=== PATIENT | female | born 1970 | race African-American/Black ===

== ENCOUNTER → 2020-06-24 13:15 | Outpatient (BNVA) | payer BC, SELFPAY | PROVIDERS: PCP Internal Medicine; Visit Provider Hospitalist ==

== ENCOUNTER → 2021-03-27 13:32 | Outpatient (BNVA) | payer OTHER, SELFPAY | PROVIDERS: PCP Internal Medicine; Visit Provider Hospitalist | DX: J45.50 Severe persistent asthma, uncomplicated (principal); J30.9 Allergic rhinitis, unspecified; L20.84 Intrinsic (allergic) eczema | CPT/HCPCS: 99212 ==

== ENCOUNTER → 2022-02-20 15:39 | Outpatient (BNVA) | payer OTHER, SELFPAY | PROVIDERS: Visit Provider Hospitalist | DX: J45.50 Severe persistent asthma, uncomplicated (principal); J30.9 Allergic rhinitis, unspecified; L20.84 Intrinsic (allergic) eczema | CPT/HCPCS: 99212 ==

== ENCOUNTER 2023-02-26 15:26 | Outpatient (REF) | payer OTHER, SELFPAY ==
--- NOTE | 2023-02-26 16:28 | PFT_ITS ---
Forced vital capacity 125%, FEV1 114%, FEV1/FVC ratio is 73. [id number] 78% and MVV 98%. Post bronchodilator therapy, there is no significant change. Total lung capacity 100%. Residual volume 99%. Diffusion capacity 94%. CONCLUSION: Normal pulmonary function tests, and there is no evidence of obstructive or restrictive pulmonary disorder. MD ALL Vila/LESLIEL / [phone]
== END 2023-02-26 15:27 | disposition home or self-care (01) ==
LOC: HO.RESP 15:26
PROVIDERS: PCP Family Medicine; Visit Provider Hospitalist
DX: J45.50 Severe persistent asthma, uncomplicated (principal)
CPT/HCPCS: 94010; 94727; 94729

== ENCOUNTER → 2023-02-26 16:28 | Outpatient (BNV) | payer OTHER, SELFPAY | PROVIDERS: PCP Family Medicine; Visit Provider Internal Medicine | DX: J45.50 Severe persistent asthma, uncomplicated (principal) | CPT/HCPCS: 94060; 94727; 94729 ==

== ENCOUNTER 2023-04-26 13:53 | Outpatient (AMB) | payer OTHER, SELFPAY ==
[2023-04-26 14:01] VITALS: PULSE 72; O2SAT 100; BMI 33.8
--- NOTE | 2023-04-26 14:01 | MHC.OFFVIS ---
Intake Vital Signs 04/26/23 14:01 Height 5 ft 4 in Weight 197 lb BMI 33.8 Pulse 72 Pulse Source Pulse Oximeter Pulse Oximetry (%) 100 Oxygen Delivery Method Room Air Intake Visit Reasons: Asthma/PFT Follow Up Powerhouse Operator Required: No Allergies aspirin Allergy (Severe, Verified 04/26/23 14:02) Rash and Hives Sulfa (Sulfonamide Antibiotics) Allergy (Severe, Verified 04/26/23 14:02) Rash and Hives HPI HPI Comments History of Present Illness Details The patient is a 53 year-old woman with known severe persistent asthma. She continues to be a maximum respiratory therapy with Dulera and also Spiriva. She has been using her DuoNeb 3 to 4 times a day. I saw her back in November for the 1st time and at that time she has had multiple exacerbations requiring prednisone. Since I saw her back in November she has had 3 exacerbations requiring prednisone in 1 ER visit. They wanted to admit her because of her severe wheezing but the patient was reluctant to do so went home. She has been struggling now for the last few days. When she arrived to the office she had diffuse wheezing. Significant shortness of breath. She received 3 DuoNeb treatments in the office and also received 1 dose of IM Solu-Medrol 125 mg. Still have to all the therapy should continue have some wheezing. Apparently she was stable enough to go home. We did review her blood work at [facility]. She did have some eosinophilia noted on her CBC, but, it did clear based on the fact that she went on prednisone. Her IgE level was 100. There is RAST test positive for significant allergens. Positive for multi including alterneria. Also significant allergies to dust mites and environmental allergies including trees and significant for grasses and cats and dogs. Based on his significant wheezing will times a day that I have evaluated her she is not able to perform a spirometry. 03/17/2019 Today the patient is here for pulmonary follow-up visit. She is doing better. She is still on the prednisone taper. Recently she bought a house and she is going to the moving process. She did get approved for the Dupixent although, she is concerned about the Co pays. She continues her respiratory therapy. Well on the prednisone to breathe the better. 02/20/2022 the patient is here for pulmonary follow-up visit. Overall her symptoms have improved dramatically and Dupixent. Doing very well. She has been off prednisone since she started the medication. Has been using her Dulera as rx. Has required her AALIYAH a few times, but less than 1 time aweek. She does start feeling some symptoms of her asthma and also eczema just prior to her next dose. Therefore she needs to continue the therapy as her significant allergic asthma and a topic dermatitis her still present. She is tolerating the injections, but causing injection site pain. Denies any side effects of any reactions to the actual injection site or any systemic manifestations. Otherwise she is doing very well. Otherwise the patient is without any other complaints. 04/26/2023 the patient is here for a pulmonary follow-up visit. She continues to do extremely well on the Dupixent injections. Her asthma has been completely under control. She has not required any prednisone. She does have a respiratory medications which she uses. Has not required her rescue inhaler. Unfortunately she did develop an episode of GI bleed and was diagnosed with colitis. The details of that are not available since have any Boo Geraldo not sure right now she has diagnosis. Then subsequently after that [facility] Medical History (Updated 04/28/23 @ 22:12 by Rodríguez Cabezas MD) Renal insufficiency Eczema Chronic allergic rhinitis Asthma Social History (Updated 03/27/21 @ 13:41 by JEN Gordon) Patient Tobacco Use Status: Never used Tobacco Review of Systems Const Denies night sweats ENT Denies change in voice, Denies lip swelling, Denies mouth pain, Reports nasal congestion, Reports nasal discharge and Denies tongue swelling Card Denies chest pain Resp Reports cough and Denies wheezing GI Reports as per HPI and Reports abdominal pain Reports as per HPI Musc Denies no additional complaints Skin/Breast Denies pruritus and Denies erythema Neuro Denies Neuro-related abnormal movements Psych Denies no additional complaints Eduardo/Lymph Denies easy bleeding and Denies lymphadenopathy Aller/Immun Denies lip swelling, Denies tongue swelling and Denies wheezing Physical Exam Vital Signs: Last Vital Signs Pulse 72 04/26/23 14:01 Pulse Ox 100 04/26/23 14:01 Oxygen Delivery Method Room Air 04/26/23 14:01 BMI result Body Mass Index 33.8 Const General: alert Neck Neck: Yes normal visual inspection, Yes full ROM and Yes no lymphadenopathy Chest Chest palpation & inspection: normal inspection of the chest Resp Auscultation: clear to auscultation bilaterally, no rhonchi and no wheezes Cardio Rate: regular rate Rhythm: regular rhythm Heart sounds: S1 normal heart sound present and S2 normal heart sound present GI Palpation (GI): Soft to palpation and nontender Auscultation: normal bowel sounds General: Yes no CVA tenderness Back/Spine/Pelvis Back: no CVA tenderness Skin General skin exam: rashes and/or lesions noted Results Reviewed Results Reviewed: RUN: 04/28/231 PAGE 1 [facility] [address] [place] [id number] [employer]iss Press Operator: Baltazar Doyle M.D. Specimen Inquiry Name: Terese Randall Age/Sex: 53/F : 1970 Unit#: [id number] Attend Dr: Rodríguez Cabezas MD Re04/26/23 Status: DEP REF Location: [facility] Disch: SPEC : [id number] KENDAL: 04/26/23 STATUS: COMP REQ : [id number] RECD: 04/26/[address]: Rodríguez Cabezas MD COMP: 04/26/23 ENTERED: 04/26/[address]: Jing Nair MD ORDERED: Liver Panel, BMP Test Result Flag Reference Site Sodium 138 135-145 mmol/L Potassium 4.2 3.3-5.1 mmol/L CL 103 96-108 mmol/L CO2 28 22-29 mmol/L Gap 11 L 12-20 BUN 17 H 9-16 mg/dL Creat 1.02 0.5-1.4 mg/dL EGFR 57 NOTE: For -[place] individuals, multiply the result by 1.210. Chronic Kidney Disease: Estimated GFR < 60 mL/min/1.73m2 Severe Kidney Disease: Estimated GFR < 15 mL/min/1.73m2 Glucose, Random 98 60-115 mg/dL CA 9.6 8.4-10.2 mg/dL Total Bili 0.3 0.0-1.0 mg/dL Direct Bili 0.1 0.0-0.5 mg/dL AST (GOT) 17 5-31 U/L ALT (GPT) 14 0-31 U/L Protein, Total 7.8 6.5-8.0 g/dL Alb 4.1 3.5-5.0 g/dL Alk Phos 70 39-117 U/L END OF REPORT Assessment & Plan Assessment & Plan (1) Asthma: Code(s): J45.909 - Unspecified asthma, uncomplicated Qualifiers: Asthma complication type: uncomplicated Asthma persistence: persistent Asthma severity: severe Qualified Code(s): J45.50 - Severe persistent asthma, uncomplicated (2) Chronic allergic rhinitis: Code(s): J30.9 - Allergic rhinitis, unspecified (3) Eczema: Code(s): L30.9 - Dermatitis, unspecified Qualifiers: Eczema type: intrinsic Qualified Code(s): L20.84 - Intrinsic (allergic) eczema (4) Renal insufficiency: Comment: Doubt that is the Dupixent. Likely related to NSAID use. One case report of IGA nephropathy induced by Dupixent, however. She will follow up with nephrology Code(s): N28.9 - Disorder of kidney and ureter, unspecified Plan Continue Dulera 2 puff BID AALIYAH as needed continue Dupixent every 2 weeks Allergy therapy Bloodwork F/U 4-6 months Orders: Orders Basic Metabolic Panel 04/26/23 J45.909 - Unspecified asthma, uncomplicated, N28.9 - Disorder of kidney and ureter, unspecified Liver Panel 04/26/23 J45.909 - Unspecified asthma, uncomplicated, N28.9 - Disorder of kidney and ureter, unspecified Immunoglobulins,IgG IgA IgM 04/26/23 J45.909 - Unspecified asthma, uncomplicated, N28.9 - Disorder of kidney and ureter, unspecified Cyclic Citrullinated Peptide 04/26/23 J45.909 - Unspecified asthma, uncomplicated, N28.9 - Disorder of kidney and ureter, unspecified Complete Blood Count Auto Diff 04/26/23 J45.909 - Unspecified asthma, uncomplicated, N28.9 - Disorder of kidney and ureter, unspecified Erythrocyte Sedimentation Rate 04/26/23 J45.909 - Unspecified asthma, uncomplicated, N28.9 - Disorder of kidney and ureter, unspecified MELBA Reflex Titer and Pattern 04/26/23 J45.909 - Unspecified asthma, uncomplicated, N28.9 - Disorder of kidney and ureter, unspecified Coding Level of Care Code Est Pt Level 4 (76538) Diagnoses Severe persistent asthma without complication J45.50 Asthma complication type: uncomplicated Asthma persistence: persistent Asthma severity: severe Chronic allergic rhinitis J30.9 Intrinsic eczema L20.84 Eczema type: intrinsic Renal insufficiency N28.9 Time Spent (min) 17
== END 2023-04-26 14:15 | disposition home or self-care (01) ==
PROVIDERS: PCP Family Medicine; Visit Provider Hospitalist
DX: J45.50 Severe persistent asthma, uncomplicated (principal); J30.9 Allergic rhinitis, unspecified; L20.84 Intrinsic (allergic) eczema; N28.9 Disorder of kidney and ureter, unspecified
CPT/HCPCS: 99214

== ENCOUNTER 2023-04-26 13:53 | Outpatient (REF) | payer OTHER, SELFPAY ==
[2023-04-30 14:38] LABS: Anti Nuclear Antibody Screen NEGATIVE (NEGATIVE)
[2023-04-30 17:13] LABS: IgA 451 mg/dL (47-310); IgG 1312 mg/dL (600-1640); IgM 100 mg/dL (50-300)
[2023-05-04 13:12] LABS: Cyclic Citrullinated Peptide <16 UNITS
== END 2023-04-26 13:54 | disposition home or self-care (01) ==
LOC: HO.LAB 13:53
PROVIDERS: PCP Family Medicine; Visit Provider Hospitalist
DX: J45.50 Severe persistent asthma, uncomplicated (principal); J30.9 Allergic rhinitis, unspecified; L20.84 Intrinsic (allergic) eczema; N28.9 Disorder of kidney and ureter, unspecified
CPT/HCPCS: 36415; 80048; 80076; 82784; 85007; 85027; 85652; 86038; 86200; 99212

== ENCOUNTER 2023-09-26 14:00 | Outpatient (AMB) | payer OTHER, SELFPAY ==
[2023-09-26 14:05] VITALS: PULSE 71; O2SAT 97; BMI 34.0
--- NOTE | 2023-09-26 14:05 | MHC.OFFVIS ---
Vital Signs 09/26/23 14:05 Height 5 ft 4 in Weight 198 lb BMI 34.0 Pulse 71 Pulse Source Pulse Oximeter Pulse Oximetry (%) 97 Oxygen Delivery Method Room Air Intake Visit Reasons: Asthma Size Cutter Required: No Allergies aspirin Allergy (Severe, Verified 09/26/23 14:07) Rash and Hives Sulfa (Sulfonamide Antibiotics) Allergy (Severe, Verified 09/26/23 14:07) Rash and Hives HPI Comments Details: The patient is a 53 year-old woman with known severe persistent asthma. She continues to be a maximum respiratory therapy with Dulera and also Spiriva. She has been using her DuoNeb 3 to 4 times a day. I saw her back in November for the 1st time and at that time she has had multiple exacerbations requiring prednisone. Since I saw her back in November she has had 3 exacerbations requiring prednisone in 1 ER visit. They wanted to admit her because of her severe wheezing but the patient was reluctant to do so went home. She has been struggling now for the last few days. When she arrived to the office she had diffuse wheezing. Significant shortness of breath. She received 3 DuoNeb treatments in the office and also received 1 dose of IM Solu-Medrol 125 mg. Still have to all the therapy should continue have some wheezing. Apparently she was stable enough to go home. We did review her blood work at [facility]. She did have some eosinophilia noted on her CBC, but, it did clear based on the fact that she went on prednisone. Her IgE level was 100. There is RAST test positive for significant allergens. Positive for multi including alterneria. Also significant allergies to dust mites and environmental allergies including trees and significant for grasses and cats and dogs. Based on his significant wheezing will times a day that I have evaluated her she is not able to perform a spirometry. 03/17/2019 Today the patient is here for pulmonary follow-up visit. She is doing better. She is still on the prednisone taper. Recently she bought a house and she is going to the moving process. She did get approved for the Dupixent although, she is concerned about the Co pays. She continues her respiratory therapy. Well on the prednisone to breathe the better. 02/20/2022 the patient is here for pulmonary follow-up visit. Overall her symptoms have improved dramatically and Dupixent. Doing very well. She has been off prednisone since she started the medication. Has been using her Dulera as rx. Has required her AALIYAH a few times, but less than 1 time aweek. She does start feeling some symptoms of her asthma and also eczema just prior to her next dose. Therefore she needs to continue the therapy as her significant allergic asthma and a topic dermatitis her still present. She is tolerating the injections, but causing injection site pain. Denies any side effects of any reactions to the actual injection site or any systemic manifestations. Otherwise she is doing very well. Otherwise the patient is without any other complaints. 04/26/2023 the patient is here for a pulmonary follow-up visit. She continues to do extremely well on the Dupixent injections. Her asthma has been completely under control. She has not required any prednisone. She does have a respiratory medications which she uses. Has not required her rescue inhaler. Unfortunately she did develop an episode of GI bleed and was diagnosed with colitis. The details of that are not available since have any Ema Chow not sure right now she has diagnosis. Then subsequently after that 09/26/2023 the patient is here for a pulmonary follow-up visit. She is doing very well on the Dupixent. The patient has respiratory symptoms have been decreased. She has not required any prednisone. Although she still concerned about his kidneys. She will be following up with Nephrology. She has not had any recent blood work at least in the last few months. The last blood work we have in the system was back from April and her EGFR was 57. I did reassure her that was not too bad but I am not sure what it is now. She was told by primary care doctor that she had ?stage III disease?. Therefore, based on the fact that we have that information and I am concerned about her kidneys will go ahead and start Dupixent because of the potential. I doubt the Dupixent has anything to do with it but there is 1 case report with IgA nephropathy. Therefore she will follow-up with Nephrology as well as possible. If she is able to rule out the possibility of IgA nephropathy and if her kidney function is better then she can consider going back on Dupixent. We will in the meantime will see how she does without it. She does have her Dulera and her allergy medicine. Another option is the if her symptoms worsen for asthma we can always consider a different biologic if she is requiring prednisone again. Will follow-up in early fall. If she has any worsening symptoms or any concerns she will call for an earlier assessment. [facility] Medical History (Updated 04/28/23 @ 22:12 by Rodríguez Cabezas MD) Renal insufficiency Eczema Chronic allergic rhinitis Asthma Social History (Updated 03/27/21 @ 13:41 by JEN Gordon) Patient Tobacco Use Status: Never used Tobacco Review of Systems Const Denies night sweats ENT Denies change in voice, Denies lip swelling, Denies mouth pain, Reports nasal congestion, Reports nasal discharge and Denies tongue swelling Card Denies chest pain Resp Denies cough and Denies wheezing GI Reports as per HPI and Reports abdominal pain Reports as per HPI Musc Denies no additional complaints Skin/Breast Denies pruritus and Denies erythema Neuro Denies Neuro-related abnormal movements Psych Denies no additional complaints Eduardo/Lymph Denies easy bleeding and Denies lymphadenopathy Aller/Immun Denies lip swelling, Denies tongue swelling and Denies wheezing Physical Exam Vital Signs: Last Vital Signs Pulse 71 09/26/23 14:05 Pulse Ox 97 09/26/23 14:05 Oxygen Delivery Method Room Air 09/26/23 14:05 BMI result Body Mass Index 34.0 Const General: alert Neck Neck: Yes normal visual inspection, Yes full ROM and Yes no lymphadenopathy Chest Chest palpation & inspection: normal inspection of the chest Resp Auscultation: clear to auscultation bilaterally, no rhonchi and no wheezes Cardio Rate: regular rate Rhythm: regular rhythm Heart sounds: S1 normal heart sound present and S2 normal heart sound present GI Palpation (GI): Soft to palpation and nontender Auscultation: normal bowel sounds General: Yes no CVA tenderness Back/Spine/Pelvis Back: no CVA tenderness Skin General skin exam: rashes and/or lesions noted Assessment & Plan Assessment & Plan (1) Asthma: Code(s): J45.909 - Unspecified asthma, uncomplicated Category: Medical Qualifiers: Asthma complication type: uncomplicated Asthma persistence: persistent Asthma severity: severe Qualified Code(s): J45.50 - Severe persistent asthma, uncomplicated (2) Chronic allergic rhinitis: Code(s): J30.9 - Allergic rhinitis, unspecified Category: Medical (3) Eczema: Code(s): L30.9 - Dermatitis, unspecified Category: Medical Qualifiers: Eczema type: intrinsic Qualified Code(s): L20.84 - Intrinsic (allergic) eczema (4) Renal insufficiency: Comment: Doubt that is the Dupixent. Likely related to NSAID use. One case report of IGA nephropathy induced by Dupixent, however. She will follow up with nephrology Code(s): N28.9 - Disorder of kidney and ureter, unspecified Category: Medical Plan Continue Dulera 2 puff BID AALIYAH as needed will hold Dupixent every 2 weeks for now. She will follow up with her financial coordinator and monitor her asthma symptoms F/U 4 months Medications: Changed From cetirizine 10 mg PO DAILY To cetirizine 10 mg PO DAILY 90 tabs 3RF 90 days Refilled mometasone-formoterol 100-5 mcg/actuation 2 puffs inhalation BID 13 grams 11RF 30 days Coding Level of Care Code Est Pt Level 4 (16745) Diagnoses Severe persistent asthma without complication J45.50 Asthma complication type: uncomplicated Asthma persistence: persistent Asthma severity: severe Chronic allergic rhinitis J30.9 Intrinsic eczema L20.84 Eczema type: intrinsic Renal insufficiency N28.9 Time Spent (min) 17
== END 2023-09-26 14:22 | disposition home or self-care (01) ==
PROVIDERS: PCP Family Medicine; Visit Provider Hospitalist
DX: J45.50 Severe persistent asthma, uncomplicated (principal); J30.9 Allergic rhinitis, unspecified; L20.84 Intrinsic (allergic) eczema; N28.9 Disorder of kidney and ureter, unspecified
CPT/HCPCS: 99214

== ENCOUNTER → 2023-09-26 14:00 | Outpatient (BNVA) | payer OTHER, SELFPAY | PROVIDERS: PCP Family Medicine; Visit Provider Hospitalist | DX: J45.50 Severe persistent asthma, uncomplicated (principal); J30.9 Allergic rhinitis, unspecified; L20.84 Intrinsic (allergic) eczema; N28.9 Disorder of kidney and ureter, unspecified | CPT/HCPCS: 99212 ==

== ENCOUNTER 2024-01-27 15:22 | Outpatient (AMB) | payer BC, SELFPAY ==
[2024-01-27 15:25] VITALS: BP 128/70; PULSE 66; O2SAT 100; BMI 33.7
--- NOTE | 2024-01-27 15:25 | A.OFFVIS_ITS ---
Vital Signs 01/27/24 15:25 Height 5 ft 4 in Weight 196 lb 6.91 oz BMI 33.7 BP 128/70 Blood Pressure Location Lt brachial Position Sitting Pulse 66 Pulse Source Pulse Oximeter Pulse Oximetry (%) 100 Oxygen Delivery Method Room Air Intake Visit Reasons: Asthma Gallery Or Museum Curator Required: No Allergies aspirin Allergy (Severe, Verified 01/27/24 15:29) Rash and Hives Sulfa (Sulfonamide Antibiotics) Allergy (Severe, Verified 01/27/24 15:29) Rash and Hives HPI Comments Details: The patient is a 53 year-old woman with known severe persistent asthma. She continues to be a maximum respiratory therapy with Dulera and also Spiriva. She has been using her DuoNeb 3 to 4 times a day. I saw her back in November for the 1st time and at that time she has had multiple exacerbations requiring prednisone. Since I saw her back in November she has had 3 exacerbations requiring prednisone in 1 ER visit. They wanted to admit her because of her severe wheezing but the patient was reluctant to do so went home. She has been struggling now for the last few days. When she arrived to the office she had diffuse wheezing. Significant shortness of breath. She received 3 DuoNeb treatments in the office and also received 1 dose of IM Solu-Medrol 125 mg. Still have to all the therapy should continue have some wheezing. Apparently she was stable enough to go home. We did review her blood work at [facility]. She did have some eosinophilia noted on her CBC, but, it did clear based on the fact that she went on prednisone. Her IgE level was 100. There is RAST test positive for significant allergens. Positive for multi including alterneria. Also significant allergies to dust mites and environmental allergies including trees and significant for grasses and cats and dogs. Based on his significant wheezing will times a day that I have evaluated her she is not able to perform a spirometry. 03/17/2019 Today the patient is here for pulmonary follow-up visit. She is doing better. She is still on the prednisone taper. Recently she bought a house and she is going to the moving process. She did get approved for the Dupixent although, she is concerned about the Co pays. She continues her respiratory therapy. Well on the prednisone to breathe the better. 02/20/2022 the patient is here for pulmonary follow-up visit. Overall her symptoms have improved dramatically and Dupixent. Doing very well. She has been off prednisone since she started the medication. Has been using her Dulera as rx. Has required her AALIYAH a few times, but less than 1 time aweek. She does start feeling some symptoms of her asthma and also eczema just prior to her next dose. Therefore she needs to continue the therapy as her significant allergic asthma and a topic dermatitis her still present. She is tolerating the injections, but causing injection site pain. Denies any side effects of any reactions to the actual injection site or any systemic manifestations. Otherwise she is doing very well. Otherwise the patient is without any other complaints. 04/26/2023 the patient is here for a pulmonary follow-up visit. She continues to do extremely well on the Dupixent injections. Her asthma has been completely under control. She has not required any prednisone. She does have a respiratory medications which she uses. Has not required her rescue inhaler. Unfortunately she did develop an episode of GI bleed and was diagnosed with colitis. The details of that are not available since have any Ema Chow not sure right now she has diagnosis. Then subsequently after that 09/26/2023 the patient is here for a pulmonary follow-up visit. She is doing very well on the Dupixent. The patient has respiratory symptoms have been decreased. She has not required any prednisone. Although she still concerned about his kidneys. She will be following up with Nephrology. She has not had any recent blood work at least in the last few months. The last blood work we have in the system was back from April and her EGFR was 57. I did reassure her that was not too bad but I am not sure what it is now. She was told by primary care doctor that she had ?stage III disease?. Therefore, based on the fact that we have that information and I am concerned about her kidneys will go ahead and start Dupixent because of the potential. I doubt the Dupixent has anything to do with it but there is 1 case report with IgA nephropathy. Therefore she will follow-up with Nephrology as well as possible. If she is able to rule out the possibility of IgA nephropathy and if her kidney function is better then she can consider going back on Dupixent. We will in the meantime will see how she does without it. She does have her Dulera and her allergy medicine. Another option is the if her symptoms worsen for asthma we can always consider a different biologic if she is requiring prednisone again. Will follow-up in early fall. If she has any worsening symptoms or any concerns she will call for an earlier assessment. 01/27/2024 the patient is here for a pulmonary follow-up visit. Since we last spoke the patient did require a course of prednisone because of worsening respiratory symptoms and now she is off the prednisone although she feels like her breathing is not well for her. She has been using her inhalers as prescribed. She does have severe persistent asthma. She did extremely well Dupixent where her symptoms improved significantly. although she did ended up with the IgA nephropathy. And then came up the question of 50 Dupixent has anything to do with that. There were some case reports that did suggest some connection. Therefore she has been off the Dupixent since then. Now that her symptoms are worsening the patient will benefit from going back on the biologic therapy. Although since there is any potential risk of kidney disease is best to avoid Dupixent at this time. We did talk about different alternatives including Fasenra in Xolair. Her eosinophils continue be elevated suggesting an L5 inhibitor will be effective. Will have to wait for the IgE to get a sense of other alternatives. In the meantime she is going to continue with the current respiratory therapy. She is going to undergo blood work today to see if she will benefit more from a I 0 5 inhibitor versus Xolair. [facility] Medical History (Updated 04/28/23 @ 22:12 by Rodríguez Cabezas MD) Renal insufficiency Eczema Chronic allergic rhinitis Asthma Social History (Updated 03/27/21 @ 13:41 by JEN Gordon) Patient Tobacco Use Status: Never used Tobacco Review of Systems Const Denies night sweats ENT Denies change in voice, Denies lip swelling, Denies mouth pain, Reports nasal congestion, Reports nasal discharge and Denies tongue swelling Card Denies chest pain Resp Denies cough and Denies wheezing GI Reports as per HPI and Reports abdominal pain Musc Denies no additional complaints Skin/Breast Denies pruritus and Denies erythema Neuro Denies Neuro-related abnormal movements Psych Denies no additional complaints Eduardo/Lymph Denies easy bleeding and Denies lymphadenopathy Aller/Immun Denies lip swelling, Denies tongue swelling and Denies wheezing Physical Exam Vital Signs: Last Vital Signs Pulse 66 01/27/24 15:25 BP 128/70 01/27/24 15:25 Pulse Ox 100 01/27/24 15:25 Oxygen Delivery Method Room Air 01/27/24 15:25 BMI result Body Mass Index 33.7 Const General: alert Neck Neck: Yes normal visual inspection, Yes full ROM and Yes no lymphadenopathy Chest Chest palpation & inspection: normal inspection of the chest Resp Effort & Inspection: prolonged expiratory phase Auscultation: clear to auscultation bilaterally, no rhonchi and no wheezes Cardio Rate: regular rate Rhythm: regular rhythm Heart sounds: S1 normal heart sound present and S2 normal heart sound present GI Palpation (GI): Soft to palpation and nontender Auscultation: normal bowel sounds General: Yes no CVA tenderness Back/Spine/Pelvis Back: no CVA tenderness Skin General skin exam: rashes and/or lesions noted Assessment & Plan Assessment & Plan (1) Asthma: Code(s): J45.909 - Unspecified asthma, uncomplicated Category: Medical Qualifiers: Asthma complication type: uncomplicated Asthma persistence: persistent Asthma severity: severe Qualified Code(s): J45.50 - Severe persistent asthma, uncomplicated (2) Chronic allergic rhinitis: Code(s): J30.9 - Allergic rhinitis, unspecified Category: Medical (3) Eczema: Code(s): L30.9 - Dermatitis, unspecified Category: Medical Qualifiers: Eczema type: intrinsic Qualified Code(s): L20.84 - Intrinsic (allergic) eczema (4) Renal insufficiency: Comment: Doubt that is the Dupixent. Likely related to NSAID use. One case report of IGA nephropathy induced by Dupixent, however. She will follow up with nephrology Code(s): N28.9 - Disorder of kidney and ureter, unspecified Category: Medical Plan Continue Dulera 2 puff BID AALIYAH as needed stop Dupixent Request bloodwork start Fasenra if Eos are elevated. Also would consider Xolair if Eos are normal F/U 4 months Orders: Orders Immunoglobulin E Today J45.50 - Severe persistent asthma, uncomplicated Erythrocyte Sedimentation Rate Today J45.50 - Severe persistent asthma, uncomplicated Complete Blood Count Auto Diff Today J45.50 - Severe persistent asthma, uncomplicated Coding Level of Care Code Est Pt Level 4 (96747) Diagnoses Severe persistent asthma without complication J45.50 Asthma complication type: uncomplicated Asthma persistence: persistent Asthma severity: severe Chronic allergic rhinitis J30.9 Intrinsic eczema L20.84 Eczema type: intrinsic Renal insufficiency N28.9 Time Spent (min) 17
== END 2024-01-27 15:48 | disposition home or self-care (01) ==
PROVIDERS: PCP Family Medicine; Visit Provider Hospitalist
DX: J45.50 Severe persistent asthma, uncomplicated (principal); J30.9 Allergic rhinitis, unspecified; L20.84 Intrinsic (allergic) eczema; N28.9 Disorder of kidney and ureter, unspecified
CPT/HCPCS: 99214

== ENCOUNTER 2024-01-27 15:22 | Outpatient (REF) | payer BC, SELFPAY ==
[2024-01-27 17:01] LABS: Hematocrit 38.4 % (37.0-47.0); Hemoglobin 12.4 g/dl (12.0-16.0); Imm Gran Abs Auto 0.02 X10*3/uL (0.00-0.03); Imm Gran Pct Auto 0.2 % (0.0-0.4); MANUAL DIFF FLAG SCAN; Mean Corpuscular HGB Conc 32.3 g/dl (31.0-35.0); Mean Corpuscular Hemoglobin 28.1 pg (27.0-33.0); Mean Platelet Volume 13.3 fL (9.4-12.3); Red Cell Distribution Width 14.6 % (11.0-16.0); SCAN SMEAR FLAG 1
[2024-01-27 17:04] LABS: Basophils Absolute Auto 0.1 X10*3/uL (0.0-0.2); Basophils Percent Auto 0.9 % (0-2); Eosinophils Absolute Auto 0.4 X10*3/uL (0.0-0.4); Eosinophils Percent Auto 4.4 % (0-4); Lymphocytes Absolute Auto 3.2 X10*3/uL (1.2-4.9); Lymphocytes Percent Auto 34.6 % (20-40); Mean Corpuscular Volume 86.9 fL (80.0-98.0); Monocytes Absolute Auto 0.8 X10*3/uL (0.1-1.2); Monocytes Percent Auto 8.3 % (2-11); Neutrophils Absolute Auto 4.7 x10*3/uL (2.0-8.3); Neutrophils Percent Auto 51.6 % (45-73); Platelet Count 236 X10*3/uL (160-400); Red Blood Count 4.42 X10*6/uL (4.20-5.50); White Blood Count 9.2 X10*3/uL (4.8-10.8)
[2024-01-27 17:17] LABS: PLT ABN DIST 1
[2024-01-27 17:29] LABS: SLIDE REVIEW VERIFIED
[2024-01-27 17:43] LABS: Erythrocyte Sedimentation Rate 24 MM/HR (0-20)
[2024-01-30 03:24] LABS: Immunoglobulin E 9 kU/L (<OR=114)
== END 2024-01-27 15:23 | disposition home or self-care (01) ==
LOC: HO.LAB 15:22
PROVIDERS: PCP Family Medicine; Visit Provider Hospitalist
DX: J45.909 Unspecified asthma, uncomplicated (principal); N28.9 Disorder of kidney and ureter, unspecified; J45.50 Severe persistent asthma, uncomplicated
CPT/HCPCS: 36415; 82785; 85025; 85652

== ENCOUNTER 2024-06-15 15:33 | Outpatient (AMB) | payer BC, SELFPAY ==
--- NOTE | 2024-06-15 15:35 | A.OFFVIS_ITS ---
Vital Signs 06/15/24 15:36 Height 5 ft 4 in Weight 220 lb 7.396 oz BMI 37.8 BP 138/74 Blood Pressure Location Rt brachial Position Sitting Pulse 77 Pulse Source Pulse Oximeter Pulse Oximetry (%) 98 Oxygen Delivery Method Room Air Intake Visit Reasons: Asthma Allergies aspirin Allergy (Severe, Verified 06/15/24 15:40) Rash and Hives Sulfa (Sulfonamide Antibiotics) Allergy (Severe, Verified 06/15/24 15:40) Rash and Hives HPI Comments Details: The patient is a 54 year-old woman with known severe persistent asthma. She continues to be a maximum respiratory therapy with Dulera and also Spiriva. She has been using her DuoNeb 3 to 4 times a day. I saw her back in November for the 1st time and at that time she has had multiple exacerbations requiring prednisone. Since I saw her back in November she has had 3 exacerbations requiring prednisone in 1 ER visit. They wanted to admit her because of her severe wheezing but the patient was reluctant to do so went home. She has been struggling now for the last few days. When she arrived to the office she had diffuse wheezing. Significant shortness of breath. She received 3 DuoNeb treatments in the office and also received 1 dose of IM Solu-Medrol 125 mg. Still have to all the therapy should continue have some wheezing. Apparently she was stable enough to go home. We did review her blood work at [facility]. She did have some eosinophilia noted on her CBC, but, it did clear based on the fact that she went on prednisone. Her IgE level was 100. There is RAST test positive for significant allergens. Positive for multi including alterneria. Also significant allergies to dust mites and environmental allergies including trees and significant for grasses and cats and dogs. Based on his significant wheezing will times a day that I have evaluated her she is not able to perform a spirometry. 03/17/2019 Today the patient is here for pulmonary follow-up visit. She is doing better. She is still on the prednisone taper. Recently she bought a house and she is going to the moving process. She did get approved for the Dupixent although, she is concerned about the Co pays. She continues her respiratory therapy. Well on the prednisone to breathe the better. 02/20/2022 the patient is here for pulmonary follow-up visit. Overall her symptoms have improved dramatically and Dupixent. Doing very well. She has been off prednisone since she started the medication. Has been using her Dulera as rx. Has required her AALIYAH a few times, but less than 1 time aweek. She does start feeling some symptoms of her asthma and also eczema just prior to her next dose. Therefore she needs to continue the therapy as her significant allergic asthma and a topic dermatitis her still present. She is tolerating the injections, but causing injection site pain. Denies any side effects of any reactions to the actual injection site or any systemic manifestations. Otherwise she is doing very well. Otherwise the patient is without any other complaints. 04/26/2023 the patient is here for a pulmonary follow-up visit. She continues to do extremely well on the Dupixent injections. Her asthma has been completely under control. She has not required any prednisone. She does have a respiratory medications which she uses. Has not required her rescue inhaler. Unfortunately she did develop an episode of GI bleed and was diagnosed with colitis. The details of that are not available since have any Ema Chow not sure right now she has diagnosis. Then subsequently after that 09/26/2023 the patient is here for a pulmonary follow-up visit. She is doing very well on the Dupixent. The patient has respiratory symptoms have been decreased. She has not required any prednisone. Although she still concerned about his kidneys. She will be following up with Nephrology. She has not had any recent blood work at least in the last few months. The last blood work we have in the system was back from April and her EGFR was 57. I did reassure her that was not too bad but I am not sure what it is now. She was told by primary care doctor that she had ?stage III disease?. Therefore, based on the fact that we have that information and I am concerned about her kidneys will go ahead and start Dupixent because of the potential. I doubt the Dupixent has anything to do with it but there is 1 case report with IgA nephropathy. Therefore she will follow-up with Nephrology as well as possible. If she is able to rule out the possibility of IgA nephropathy and if her kidney function is better then she can consider going back on Dupixent. We will in the meantime will see how she does without it. She does have her Dulera and her allergy me dicine. Another option is the if her symptoms worsen for asthma we can always consider a different biologic if she is requiring prednisone again. Will follow-up in early fall. If she has any worsening symptoms or any concerns she will call for an earlier assessment. 01/27/2024 the patient is here for a pulmonary follow-up visit. Since we last spoke the patient did require a course of prednisone because of worsening respiratory symptoms and now she is off the prednisone although she feels like her breathing is not well for her. She has been using her inhalers as prescribed. She does have severe persistent asthma. She did extremely well Dupixent where her symptoms improved significantly. although she did ended up with the IgA nephropathy. And then came up the question of 50 Dupixent has anything to do with that. There were some case reports that did suggest some connection. Therefore she has been off the Dupixent since then. Now that her symptoms are worsening the patient will benefit from going back on the biologic therapy. Although since there is any potential risk of kidney disease is best to avoid Dupixent at this time. We did talk about different alternatives i ncluding Fasenra in Xolair. Her eosinophils continue be elevated suggesting an L5 inhibitor will be effective. Will have to wait for the IgE to get a sense of other alternatives. In the meantime she is going to continue with the current respiratory therapy. She is going to undergo blood work today to see if she will benefit more from a I 0 5 inhibitor versus Xolair. 06/15/2024 the patient is here for a pulmonary follow-up visit. Apparently she developed flu-like symptoms about 3 weeks ago and she has finally recovering a little bit although she still having productive cough with yellow phlegm. Likely postviral bacterial infection. Will go ahead and treat that with doxycycline. In addition to that she has switched over to the Fasenra and she has found that that is very effective for her. It has been very helpful for her asthma. Although she has been noticing some pleuritic type of eczema some findings on her palms which is very rare for her and she feels is related to the medicine. Although is really helping her asthma so therefore will try to continue it for now. I will prescribe her Eucrisa that she can continue with her steroid ointment that she is using to see if this provides her relief and will hopefully see if her symptoms subside some when she started using the injections every 8 weeks. In addition to that she is having significant lower extremity edema. She has had issues with kidneys although apparently has been stable. Will go have her get blood work to make sure her kidneys are okay and if they are will give her a course of Lasix for 3 days to improve her volume status. She knows she needs to avoid salt because she is retaining it too much. Although she will continue with respiratory therapy. If she has any issues she will call otherwise will follow-up in 4-6 months. [facility] Medical History (Updated 06/15/24 @ 16:09 by Rodríguez Cabezas MD) Lower extremity edema Renal insufficiency Eczema Chronic allergic rhinitis Asthma Social History (Updated 06/15/24 @ 15:39 by Yuki Jackson CMA) Patient Tobacco Use Status: Former Tobacco user Review of Systems Const Denies night sweats ENT Denies change in voice, Denies lip swelling, Denies mouth pain, Reports nasal congestion, Reports nasal discharge and Denies tongue swelling Card Denies chest pain Resp Denies cough and Denies wheezing GI Reports as per HPI and Reports abdominal pain Musc Denies no additional complaints Skin/Breast Reports pruritus, Reports erythema and Reports rash Neuro Denies Neuro-related abnormal movements Psych Denies no additional complaints Eduardo/Lymph Denies easy bleeding and Denies lymphadenopathy Aller/Immun Denies lip swelling, Denies tongue swelling and Denies wheezing Physical Exam Vital Signs: Last Vital Signs Pulse 77 06/15/24 15:36 BP 138/74 06/15/24 15:36 Pulse Ox 98 06/15/24 15:36 Oxygen Delivery Method Room Air 06/15/24 15:36 BMI result Body Mass Index 37.8 Const General: alert Neck Neck: Yes normal visual inspection, Yes full ROM and Yes no lymphadenopathy Chest Chest palpation & inspection: normal inspection of the chest Resp Auscultation: clear to auscultation bilaterally, no rhonchi and no wheezes Cardio Rate: regular rate Rhythm: regular rhythm Heart sounds: S1 normal heart sound present and S2 normal heart sound present GI Palpation (GI): Soft to palpation and nontender Auscultation: normal bowel sounds General: Yes no CVA tenderness Back/Spine/Pelvis Back: no CVA tenderness Skin Rashes: rashes noted patches bilateral palmar Assessment & Plan Assessment & Plan (1) Asthma: Code(s): J45.909 - Unspecified asthma, uncomplicated Category: Medical Qualifiers: Asthma complication type: uncomplicated Asthma persistence: persistent Asthma severity: severe Qualified Code(s): J45.50 - Severe persistent asthma, uncomplicated (2) Chronic allergic rhinitis: Code(s): J30.9 - Allergic rhinitis, unspecified Category: Medical (3) Eczema: Code(s): L30.9 - Dermatitis, unspecified Category: Medical Qualifiers: Eczema type: intrinsic Qualified Code(s): L20.84 - Intrinsic (allergic) eczema (4) Renal insufficiency: Comment: Doubt that is the Dupixent. Likely related to NSAID use. One case report of IGA nephropathy induced by Dupixent, however. She will follow up with nephrology Code(s): N28.9 - Disorder of kidney and ureter, unspecified Category: Medical (5) Lower extremity edema: Code(s): R60.0 - Localized edema Category: Medical Plan Continue Dulera 2 puff BID AALIYAH as needed continue Fasenra, monitor rash Start Eucrisa lasix x 3 days start doxycycline Bloodwotk Low sodium diet F/U 4 months Orders: Orders Complete Blood Count Auto Diff Today R60.0 - Localized edema MELBA Reflex Titer and Pattern Today R60.0 - Localized edema Cyclic Citrullinated Peptide Today R60.0 - Localized edema Basic Metabolic Panel Today R60.0 - Localized edema Erythrocyte Sedimentation Rate Today R60.0 - Localized edema Medications: New crisaborole 2% 1 appl topical BID 60 grams 8RF doxycycline hyclate 100 mg PO BID 20 caps 0RF 10 days furosemide (Lasix) 20 mg PO DAILY 3 tabs 0RF 3 days crisaborole 2% 1 appl topical BID 60 grams 8RF Coding Level of Care Code Est Pt Level 4 (29963) Diagnoses Severe persistent asthma without complication J45.50 Asthma complication type: uncomplicated Asthma persistence: persistent Asthma severity: severe Chronic allergic rhinitis J30.9 Intrinsic eczema L20.84 Eczema type: intrinsic Renal insufficiency N28.9 Lower extremity edema R60.0 Time Spent (min) 18
[2024-06-15 15:36] VITALS: BP 138/74; PULSE 77; O2SAT 98; BMI 37.8
--- OUTSIDE RECORDS SUMMARY | 2024-06-15 17:49 | XMS_ITS | Encounter Summary ---
Author Organization [facility] Address [address] [place] [address] Care Team Providers Care Machine Designer Name Role Phone Jing Nair MD Primary Care Pr ovider Reason for Referral * Consultation (Routine) - Pending Review Specialty Diagnoses / Procedures Referred By Ugo grubbs Referred To Contact Cardiology Diagnoses Essential hypertension Jing Nair MD [address] [place] [address] Phone: tel: fax: [facility] [address] [place] [address] Phone: tel: fax: Referral ID Status Reason Start Date Expiration Date Visits Requested Visits Authorized [id number] Pending Review Specialty Services Required 05/21/2024 05/21/2025 1 1 Reason for Visit * Reason Onset Date Comments Referral 05/15/2024 Received routine paper referral - Apr. ab Encounter Details Date Type Department Care Team (Late st Contact Info) Description 05/15/2024 Telephone Adult Medicine [address] [phone] Jing Nair MD [address] [place] [phone] Referral (Received routine paper referral - Apr. ab) Social History Tobacco Use Types Packs/Day Years Used Date Smoking Tobacco: Former Cigarettes 0.5 10 0 04/22/1985 - 04/22/1995 Smokeless Tobacco: Never Alcohol Use Standard Drinks/Week Comments Yes 0 (1 standard drink = 0.6 oz pur e alcohol) Comments Unknown Sex and Gender Information Value Date Recorded Sex Assigned at Not on file Legal Sex Female 6:40 PM EST Gender Identity Not on file Sexual Orientation Not on file documented as of this encounter Plan of Treatment Upcoming Encounters Date Type Department Care Team (Late st Contact Info) Description 09/02/2024 4:30 PM EDT Office Visit Adult Medicine [address] [phone] Jing Nair MD [address] [place] [address] 01/29/2025 3:00 PM EDT Appointment Radiology Department - [address] [phone] Scheduled Referrals Name Type Priority Associated Diagnoses Orde r Schedule Ambulatory referral to Cardiology Outpatient Referral Routine Essential hypertension 1 Occurrences starting 05/21/2024 until 05/21/2025 documented as of this encounter Visit Diagnoses Diagnosis Essential hypertension- Primary Unspecified essential hypertension Encounter for screening mammogram for breast cancer documented in this encounter Care Teams Machine Designer Relationship Specialty Start Date End Date Jing Nair MD [address], [place] PCP - General Internal Medicine 12/18/21 documented as of this encounter
--- OUTSIDE RECORDS SUMMARY | 2024-06-15 17:49 | XMS_ITS | Clinical Summary ---
Author Organization [facility], Address [address] [place] [address] [place] [address] Phone Care Team Providers Care Frameman Name Role Phone Jing Nair Primary Care Provider Allergies Active Allergy Reactions Criticality Noted Date Comments Aspirin Nausea And Vomiting 04/24/2005 CAN TOLERATE NSAIDS Banana 11/24/2018 Sulfa Antibiotics Other (see comments) 04/24/19 06 Sulfamethoxazole-Trimet hopri 01/14/2019 Medications Tiotropium Riesel Monohydrate 2.5 MCG/ACT aerosol solution Inhale 5 mcg 9 Active predniSONE (DELTASONE) 20 MG tablet 3 tablets by mouth daily for 2 days, then 2 tablets daily by mouth for 3 days 9 Active montelukast (SINGULAIR) 10 MG tablet Take 10 mg by mouth 8 Active loratadine (CLARITIN) 10 MG tablet Take 10 mg by mouth 9 Active Dupilumab 300 MG/2ML solution prefilled syringe Inject under the skin Active cholecalciferol (VITAMIN D-3 SUPER STRENGTH) 50 MCG (1999 UT) tablet Take 1 tablet by mouth 9 Active budesonide (PULMICORT) 0.5 MG/2ML nebulizer solution Inhale 0.5 mg 9 Active betamethasone, augmented, (DIPROLENE) 0.05 % ointment APPLY TWICE DAILY NEEDED FOR ECZEMA 1 Active mometasone-form oterol (DULERA 100) 100-5 MCG/ACT inhaler Inhale 2 puffs in the morning and 2 puffs before bedtime. 39 g 3 2 Active bisacodyl (DULCOLAX) 5 MG EC tablet Take 4 tabs by mouth right before beginning bowel prep. Follow instructions given by office for timing. 2 Active polyethylene glycol (GLYCOLAX) 17 GM/SCOOP powder TAKE 17 GRAMS BY MOUTH DAILY. MIX IN 4 TO 8 OUNCES OF BEVERAGE BEFORE CONSUMING). 3 Active losartan (COZAAR) 25 MG tablet Take 1 tablet (25 mg total) by mouth 1 (one) time each day 90 tablet 3 3 Active albuterol HFA (PROVENTIL HFA;VENTOLIN HFA) 108 (90 Base) MCG/ACT inhaler Inhale 2 puffs every 4 (four) hours if needed for wheezing 18 g 11 3 Active Active Problems Problem Noted Date Diagnosed Date Stage 3a chronic kidney disease 04/04/2022 Asthma 01/14/2019 Vitamin D deficiency 07/14/2018 Essential hypertension 06/16/2018 Adjustment disorder with mixed anxiety and depre ssed mood 06/16/2018 Irritable bowel syndrome 08/12/2009 Resolved Problems Problem Noted Date Diagnosed Date Resolved Date Chronic kidney disease stage 3 06/24/2020 04/04/2022 Encounters Date Type Department Care Team Description 05/15/2024 Telephone [facility] [address] [place] [address] Rafaela Cabezas MA 05/15/2024 Documentation Only [facility] [address] [place] [address] Rafaela Cabezas MA 05/06/2024 4:00 PM EST Office Visit [facility] [address] [place] [address] Dylan Strauss MD Essential hypertension (Primary Dx) from Last 3 Months Immunizations Name Administration Dates Next Due Influenza TIV (IM) 02/11/2015,12/28/2009, 009,02/04/2008 PPD Test 02/11/2015, 2,08/15/2009,06/29/2000,03/0 11/2000 Pneumococcal Polysaccharide 02/04/2008 Tdap 06/13/2011,09/27/2004 Social History Tobacco Use Types Packs/Day Years Used Date Smoking Tobacco: Never Smokeless Tobacco: Never Comments Unknown Sex and Gender Information Value Date Recorded Sex Assigned at Not on file Legal Sex Female 3:31 PM EDT Gender Identity Not on file Sexual Orientation Not on file Last Filed Vital Signs Vital Sign Reading Time Taken Comments Blood Pressure 130/83 08/21/2022 11:02 AM EDT Pulse - - Temperature - - Respiratory Rate - - Oxygen Saturation - - Inhaled Oxygen Concentration - - Weight - - Height - - Body Mass Index - - Plan of Treatment Upcoming Encounters Date Type Department Care Team (Late st Contact Info) Description 11/04/2024 4:00 PM EDT Office Visit [facility], [address] [place] [address] Dylan Strauss MD [address] [place] [phone] Health Maintenance Due Date Last Done Comments Breast Cancer Screening 1971 Hepatitis B Vaccine (1 of 3 - 19+ 3-dose series) 1990 Pneumococcal Vaccine: Pediat rics (0 to 5 Years) and At-Risk Patients (6 to 64 Years) (2 of 2 - PCV) 02/03/2009 02/04/2008 Colorectal Cancer Screening: Annual FOBT 01/28/2020 Colorectal Cancer Screening: Colonoscopy 01/28/2020 Colorectal Cancer Screening: Sigmoidoscopy 01/28/2020 Influenza Vaccine (#1) 2023 5, 12/28/2009, 01/17/2009, Additional history exists Insurance [facility] Care Teams Frameman Relationship Specialty Start Date End Date Jing Nair PCP - General Internal Medicine 02/12/24
--- OUTSIDE RECORDS SUMMARY | 2024-06-15 17:49 | XMS_ITS | Clinical Summary ---
Author Organization [facility] [address] [place] [address] [place] [phone] Phone Care Team Providers Care Mammography Tech Name Role Phone Jing Nair MD Primary Care Pr ovider Allergies Active Allergy Reactions Criticality Noted Date Comments Aspirin Nausea And Vomiting 04/24/2005 CAN TOLERATE NSAIDS Latex 12/20/2022 Sulfa (Sulfonamide Antibiotics) Hives,Rash 04/24/2005 Sulfamethoxazole-Trim ethoprim 01/14/2019 Medications albuterol 2.5 mg /3 mL (0.083 %) nebulizer solution Take 3 mL (2.5 mg total) by nebulization every 4 (four) hours if needed for wheezing or shortness of breath. or Cough 3 Active albuterol HFA (PROAIR HFA ; PROVENTIL HFA ; VENTOLIN HFA) 90 mcg/actuation inhaler Inhale 2 puffs by mouth every 4 (four) hours if needed for wheezing or shortness of breath. 4 Active cholecalciferol (VITAMIN D-3) 50 mcg (2,000 unit) tablet Take 1 tablet (2,000 Units total) by mouth 1 (one) time each day. 4 Active diclofenac (VOLTAREN) 1 % topical gel Apply 2 g topically 3 (three) times a day if needed. pain 3 Active dupilumab (Dupixent Syringe) 300 mg/2 mL syringe Inject under the skin. dupixent Active loratadine (CLARITIN) 10 mg tablet Take 1 tablet (10 mg total) by mouth 1 (one) time each day. Active losartan (COZAAR) 50 mg tablet Take 1 tablet (50 mg total) by mouth 1 (one) time each day. for 180 days. - 4 Active medroxyPROGESTER one (PROVERA) 10 mg tablet Take 1 tablet (10 mg total) by mouth 1 (one) time each day. for 14 days. - 4 Active mometasone-formo terol (DULERA 100) 100-5 mcg/actuation inhaler Inhale 2 puffs by mouth 2 (two) times a day. 9 Active mv-min/folic/vit K/lycop/coQ10 (DAILY MULTIVITAMIN ORAL) Take 1 tablet by mouth 1 (one) time each day. Active triamcinolone (KENALOG) 0.1 % ointment Apply topically every 12 (twelve) hours. Small amounts to affected area. 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 Obesity 02/11/2015 Irritable bowel syndrome 08/12/2009 Eczema 06/25/2007 Moderate persistent asthma 06/18/2007 Overview (03/24/2024): Follows with pulmonary Encounters Date Type Department Care Team Description 05/15/2024 Telephone Adult Medicine [address] [phone] Jing Nair MD Referral (Received routine paper referral - ) from Last 3 Months Immunizations Name Administration Dates Next Due Influenza trivalent, 0.5mL, preservative free (Fluarix; FluLaval; Fluzone) ages 6mo and older (Afluria) 3 years and older 02/11/2015,12/28/2009,01/17/2009,02/03 PPD Test 02/11/2015, 2,08/15/2009,06/29,06/27/2000 Pneumococcal polysaccharide 23 valent (Pneumovax 23) 2yo and older 02/04/2008 Tdap Tetanus diptheria acell ular pertussis (Boostrix; Adacel) 7yo and older 02/22/2023,06/13/2011 Surgical History Surgery Date Site/Laterality Comments SHOULDER SURGERY 2005 PROCEDURE: HISTORICAL SHOULDER SURGERY; COMMENT: RIGHT DJD FLEXIBLE SIGMOIDOSCOPY PROCEDURE: HI SIGMOIDOSCOPY FLX DX W/COLLJ SPEC BR/WA IF PFRMD; COMMENT: AGE 16 IBS TUBAL LIGATION PROCEDURE: HISTORICAL TUBAL LIGATION CERVICAL BIOPSY W/ LOOP ELECTRODE EXCISION 2013 N/A PROCEDURE: HI CONIZATION CERVIX W/WO D&C RPR ELTRD EXC BREAST BIOPSY 2017 Left PROCEDURE: BX BREAST; PERC NEEDLE CORE W/IMAG GUID; COMMENT: neg Medical History Medical History Date Comments Eczema 06/25/2007 DX:Eczema Moderate persistent asthma 06/18/2007 DX:Mo derate persistent asthma Adjustment disorder with mix ed anxiety and depressed mood DX:Adjustment disorder with mixed anxiety and depressed mood De Quervain's tenosynovitis 06/25/2018 DX:D e Quervain's tenosynovitis; COMMENT: Follows with orthopedics Essential hypertension 06/16/2018 DX:Essent ial hypertension Irritable bowel syndrome 08/12/2009 DX:Irri table bowel syndrome Obesity 02/11/2015 DX:Obesity Right ovarian cyst 10/08/2016 DX:Right ovar dinorah cyst; COMMENT: Ultrasound October 04, 2016 Right ovary measures 2.8 x 1.5 x 1.3 cm and is diffusely echogenic in appearance of uncertain significance but possibly representing replacement by ovarian Doppler dermoid or ovarian fibroma. Abdominal pain DX:Abdominal pancho n Pancolitis (CMS/HCC) DX:Pancolit is (HCC) Fatty liver DX:Fatty liver Family History Medical History Relation Name Comments Other cancer Mother fro m pancreatic ca at 50 Breast cancer Neg Hx Colon cancer Neg Hx Ovarian cancer Neg Hx Relation Name Status Comments Brother Alive ? DM Father (Age 54) [place], HTN Mother (Age 50) CANCER FRANCO CREAS, HTN Sister 1 Alive THYROID,HTN Sister 2 Alive HTN, KIDNEY STO [place]ISTA Social History Tobacco Use Types Packs/Day Years [...] on file Sexual Orientation Not on file Obstetrics History Last Filed Vital Signs Vital Sign Reading Time Taken Comments Blood Pressure 133/87 11/27/2023 3:57 PM EDT Pulse 91 11/27/2023 3:57 PM EDT Temperature - - Respiratory Rate - - Oxygen Saturation - - Inhaled Oxygen Concentration - - Weight 90.7 kg (200 lb) 11/27/2023 3:57 PM EDT Height 162.6 cm (5' 4 ) 11/27/2023 3:57 PM EDT Body Mass Index 34.33 11/27/2023 3:57 PM EDT Plan of Treatment Upcoming Encounters Date Type Department Care Team (Late st Contact Info) Description 09/02/2024 4:30 PM EDT Office Visit Adult Medicine [address] [phone] Jing Nair MD [address] [place] [address] 01/29/2025 3:00 PM EDT Appointment Radiology Department - [address] [phone] Health Maintenance Due Date Last Done Comments COVID-19 Vaccine (#1) 01/28/1976 Hepatitis A Vaccines (1 of 2 - Risk 2-dose series) 1990 Hepatitis B Vaccines (1 of 3 - 19+ 3-dose series) 1990 Pneumococcal Vaccine: 50+ Years (2 of 2 - PCV) 02/03/2009 02/04/2008 Pneumococcal Vaccine: Pediatrics (0 to 5 Years) and At-Risk Patients (6 to 64 Years) (2 of 2 - PCV) 02/03/2009 02/04/2008 Zoster Vaccines (1 of 2) 2021 HIV Screening 03/31/2022 Social Influencers of Health Screening 03/31/2022 Influenza Vaccine (#1) 2023 5, 12/28/2009, 01/17/2009, Additional history exists Depression Screening 08/25/2024 08/26/2023 Hypertension/CHF/CAD Annual BMP Blood Test 08/29/2024 08/30/2023, 08/30/2023 Breast Cancer Screening 01/09/2026 01/10/20 24, 01/10/2024, 08/16/2023, Additional history exists Cervical Cancer Screening: HPV 07/07/2027 07/06/2022 Cholesterol Screening (Lipid Panel) 08/29/2028 08/30/2023, 08/30/2023 Colorectal Cancer Screening: Colonoscopy 08/04/2031 08/03/2021 DTaP,Tdap,and Td Vaccines (3 - Td or Tdap) 02/22/2033 02/22/2023, 06/13/2011 Hepatitis C Screening Completed 12/19/2021 HIB Vaccines Aged Out No longer eligi ble based on patient's age to complete this topic HPV Vaccines Aged Out No longer eligi ble based on patient's age to complete this topic IPV Vaccines Aged Out No longer eligi ble based on patient's age to complete this topic MMR Vaccines Aged Out No longer eligi ble based on patient's age to complete this topic Meningococcal ACWY Vaccine Aged Out N o longer eligible based on patient's age to complete this topic Meningococcal B Vacine Aged Out No lo nger eligible based on patient's age to complete this topic RSV Immunization Patients Under 20 months Aged Out No longer eligible based on patient's age to complete this topic Varicella Vaccines Aged Out No longer eligible based on patient's age to complete this topic Procedures Procedure Name Priority Date/Time Associated Diagnosis Comments DIAGNOSTIC MAMMOGRAPHY INCLUDING CAD BILATERAL Routine 01/10/2024 1:38 PM EDT Other abnormal and inconclusive findings on diagnostic imaging of breast ANNUAL BMP BLOOD TEST Routine 08/30/2023 LIPID PANEL Routine 08/30/2023 DEPRESSION SCREENING Routine 08/26/2023 HPV Routine 07/06/2022 HEPATITIS C SCREENING Routine 12/19/2021 COLONOSCOPY Routine 08/03/2021 from Last 3 Months or Most Recently Relevant to Health Maintenance Results * DIAGNOSTIC MAMMOGRAPHY INCLUDING CAD BILATERAL (01/10/2024 1:38 PM EDT) Anatomical Region Laterality Modality Mammography 07/01/2023 1:40 PM EDT Narrative 01/10/2024 1:49 PM EDT This is a summary report. The complete report is available in the patient's medical record. If you cannot access the medical record, please contact the sending organization for a detailed fax or copy. Diagnostic bilateral mammography: In addition to standard screening tomosynthesis views, a compression cc view of the left breast was performed, also using tomosynthesis. ??Mammograms were reviewed with computer aided detection and compared to previous. ??A retroareolar density being followed on the left is no longer identifiable. ??The breasts consists of a mixture of fatty and fibroglandular elements. ??There are no suspicious masses or microcalcifications. Impression: Negative bilateral mammography. BI-RADS Category 1, negative. Breast density: The breasts have scattered areas of fibroglandular density. 5 year breast cancer risk assessment 1.2 % Lifetime breast cancer risk assessment 8.3 % Breast cancer risk category Low (<15%) Location: [facility], [address] [place] [address], [address], [phone] Procedure Note Gonzalo Mcginnis MD - 02/05/2024 This is a summary report. The complete report is available in thepatient's medical record. If you cannot access the medical record, pleasecontact the sending organization for a detailed fax or copy. Diagnostic bilateral mammography: In addition to standard screeningtomosynthesis views, a compression cc view of the left breast wasperformed, also using tomosynthesis. Mammograms were reviewed withcomputer aided detection and compared to previous. A retroareolar densitybeing followed on the left is no longer identifiable. The breastsconsists of a mixture of fatty and fibroglandular elements. There are nosuspicious masses or microcalcifications. Impression: Negative bilateral mammography. BI-RADS Category 1, negative. Breast density: The breasts have scattered areas of fibroglandulardensity. 5 year breast cancer risk assessment 1.2 % Lifetime breast cancer risk assessment 8.3 % Breast cancer risk category Low (<15%) Location: [facility], [address] [place] [address], [address], [phone] Result [facility] Amaris Ceja CNM IMG BI PROCEDURES Final Result * Annual BMP Blood Test (08/30/2023) [facility] Annual BMP Blood Test abstracted Result [facility] Historical Provider HEALTH MAINTENANCE Final Result * (ABNORMAL) Lipid panel (08/30/2023) [facility] LDL/HDL Ratio 3 0 - 4 Triglycerides 80 0 - 150 mg/dL Cholesterol 192 0 - 200 mg/dL HDL 66 >=40 mg/dL LDL Cholesterol 110(A) 0 - 100 mg/dL Blood Venous blood specimen / Unknown Result [facility] Historical Provider LAB BLOOD ORDERABLES Lela l Result * Depression Screening (08/26/2023) [facility] Depression Screening abstracted Result [facility] Historical Provider HEALTH MAINTENANCE Final Result * Cervical Cancer Screening: HPV (07/06/2022) Pathologist [facility] Cervical Cancer Screening: HPV negative, abstracted Historical Provider HEALTH MAINTENANCE Final Result * Hepatitis C Screening (12/19/2021) Pathologist [facility] Hepatitis C Screening abstracted [facility] Provider HEALTH MAINTENANCE Final Result * Colonoscopy (08/03/2021) Pathologist [facility] Colonoscopy no interpretation , abstracted Anatomical Region Laterality Modality Other Historical Provider HEALTH MAINTENANCE Final Result from Last 3 Months or Most Recently Relevant to Health Maintenance Insurance [facility] Care Teams Mammography Tech Relationship Specialty Start Date End Date Jing Nair MD [address] [place], [place] PCP - General Internal Medicine 12/18/21
--- OUTSIDE RECORDS SUMMARY | 2024-06-15 17:49 | XMS_ITS | Encounter Summary ---
Author Organization [facility] Address [address] [facility] [address] [place] [address] Phone Care Team Providers Care Cable Splicer Name Role Phone Jing Nair Primary Care Provider Encounter Details Date Type Department Care Team (Late st Contact Info) Description 05/15/2024 Documentation Only [facility] [address] [place] [address] Rafaela [place], [place] [address] [place] [address] Social History Tobacco Use Types Packs/Day Years [...] Visit [facility] [address] [place] [address] Dylan Strauss MD [address] [place] [address] documented as of this encounter Visit Diagnoses Not on filedocumented in this encounter Care Teams Cable Splicer Relationship Specialty Start Date End Date Jing Nair PCP - General Internal Medicine 02/12/24 documented as of this encounter
== END 2024-06-15 16:12 | disposition home or self-care (01) ==
PROVIDERS: PCP Family Medicine; Visit Provider Hospitalist
DX: J45.50 Severe persistent asthma, uncomplicated (principal); J30.9 Allergic rhinitis, unspecified; L20.84 Intrinsic (allergic) eczema; N28.9 Disorder of kidney and ureter, unspecified; R60.0 Localized edema
CPT/HCPCS: 99214

== ENCOUNTER 2024-06-15 15:33 | Outpatient (REF) | payer BC, SELFPAY ==
[2024-06-15 16:29] LABS: MANUAL DIFF FLAG NO
[2024-06-15 17:31] LABS: Anion Gap 11 (12-20); Basophils Percent Auto 0.3 % (0-2); Blood Urea Nitrogen 13 mg/dL (9-16); Carbon Dioxide 27 mmol/L (22-29); Chloride 107 mmol/L (96-108); Estimated Glomerular Filt Rate 53; Glucose Random 84 mg/dL (60-115); Hematocrit 34.8 % (37.0-47.0); Hemoglobin 11.3 g/dl (12.0-16.0); Imm Gran Abs Auto 0.03 X10*3/uL (0.00-0.03); Imm Gran Pct Auto 0.3 % (0.0-0.4); Lymphocytes Absolute Auto 2.7 X10*3/uL (1.2-4.9); Lymphocytes Percent Auto 31.4 % (20-40); Mean Corpuscular HGB Conc 32.5 g/dl (31.0-35.0); Mean Corpuscular Hemoglobin 27.6 pg (27.0-33.0); Mean Corpuscular Volume 84.9 fL (80.0-98.0); Monocytes Percent Auto 11.1 % (2-11); Neutrophils Absolute Auto 4.9 x10*3/uL (2.0-8.3); Neutrophils Percent Auto 56.9 % (45-73); Platelet Count 259 X10*3/uL (160-400); Potassium 4.2 mmol/L (3.3-5.1); Sodium 141 mmol/L (135-145); White Blood Count 8.6 X10*3/uL (4.8-10.8)
[2024-06-15 17:55] LABS: Erythrocyte Sedimentation Rate 24 MM/HR (0-20)
--- OUTSIDE RECORDS SUMMARY | 2024-06-15 18:21 | XMS_ITS | Clinical Summary ---
Author Organization [facility] [address] [place] [address] [place] [phone] Phone Care Team Providers Care Dimension Mill Worker Name Role Phone Jing Nair MD Primary [...] Care Team Description 05/15/2024 Telephone Adult Medicine [address] [phone] Jing Nair MD Referral (Received [...] SURGERY; COMMENT: RIGHT DJD FLEXIBLE SIGMOIDOSCOPY PROCEDURE: MT SIGMOIDOSCOPY FLX DX W/COLLJ SPEC BR/WA IF PFRMD; COMMENT: AGE 16 IBS TUBAL LIGATION PROCEDURE: HISTORICAL TUBAL LIGATION CERVICAL BIOPSY W/ LOOP ELECTRODE EXCISION 2013 N/A PROCEDURE: MT CONIZATION CERVIX W/WO D&C RPR ELTRD EXC [...] Brother Alive ? DM Father (Age 54) [place], HTN Mother (Age 50) CANCER FRANCO CREAS, [...] 4:30 PM EDT Office Visit Adult Medicine [address] [phone] Jing Nair MD [address] [place] [address] 01/29/2025 3:00 PM EDT Appointment Radiology Department - [address] [phone] Health Maintenance Due Date Last Done Comments [...] Breast cancer risk category Low (<15%) Location: [facility], [address] [place] [address], [address], [phone] Procedure Note Gonzalo Mcginnis MD - 02/05/2024 [...] Breast cancer risk category Low (<15%) Location: [facility], [address] [place] [address], [address], [phone] Result [facility] Amaris Ceja CNM IMG BI PROCEDURES Final Result * Annual BMP Blood Test (08/30/2023) [facility] Annual BMP Blood Test abstracted Result [facility] Historical Provider HEALTH MAINTENANCE Final Result * (ABNORMAL) Lipid panel (08/30/2023) [facility] LDL/HDL Ratio 3 0 - 4 Triglycerides 80 0 - 150 mg/dL Cholesterol 192 0 - 200 mg/dL HDL 66 >=40 mg/dL LDL Cholesterol 110(A) 0 - 100 mg/dL Blood Venous blood specimen / Unknown Result [facility] Historical Provider LAB BLOOD ORDERABLES Lela l Result * Depression Screening (08/26/2023) [facility] Depression Screening abstracted Result [facility] Historical Provider HEALTH MAINTENANCE Final Result * Cervical Cancer Screening: HPV (07/06/2022) Pathologist [facility] Cervical Cancer Screening: HPV negative, abstracted Historical Provider HEALTH MAINTENANCE Final Result * Hepatitis C Screening (12/19/2021) Pathologist [facility] Hepatitis C Screening abstracted [facility] Provider HEALTH MAINTENANCE Final Result * Colonoscopy (08/03/2021) Pathologist [facility] Colonoscopy no interpretation , abstracted Anatomical Region Laterality Modality Other Historical Provider HEALTH MAINTENANCE Final Result from Last 3 Months or Most Recently Relevant to Health Maintenance Insurance [id number] Care Teams Dimension Mill Worker Relationship Specialty Start Date End Date Jing Nair MD [address] [place], [place] PCP - General Internal Medicine 12/18/21
--- OUTSIDE RECORDS SUMMARY | 2024-06-15 18:21 | XMS_ITS | Encounter Summary ---
Author Organization [facility] Address [address] [place] [address] Care Team Providers Care Commercial Representative Name Role Phone Jing Nair MD Primary Care Pr ovider Reason for Referral * Consultation (Routine) - Pending Review Specialty Diagnoses / Procedures Referred By Ugo grubbs Referred To Contact Cardiology Diagnoses Essential hypertension Jing Nair MD [address] [place] [address] Phone: tel: fax: [facility] [address] [place] [address] Phone: tel: fax: Referral ID Status Reason Start Date Expiration Date Visits Requested Visits Authorized [id number] Pending Review Specialty Services Required 05/21/2024 05/21/2025 1 1 Reason for Visit * Reason Onset Date Comments Referral 05/15/2024 Received routine paper referral - Apr. ab Encounter Details Date Type Department Care Team (Late st Contact Info) Description 05/15/2024 Telephone Adult Medicine [address] [phone] Jing Nair MD [address] [place] [phone] Referral (Received routine paper referral - Apr. [...] 4:30 PM EDT Office Visit Adult Medicine [address] [phone] Jing Nair MD [address] [place] [address] 01/29/2025 3:00 PM EDT Appointment Radiology Department - [address] [place] [address] [phone] Scheduled Referrals Name Type Priority Associated Diagnoses Orde r Schedule Ambulatory referral to Cardiology Outpatient Referral Routine Essential hypertension 1 Occurrences starting 05/21/2024 until 05/21/2025 documented as of this encounter Visit Diagnoses Diagnosis Essential hypertension- Primary Unspecified essential hypertension Encounter for screening mammogram for breast cancer documented in this encounter Care Teams Commercial Representative Relationship Specialty Start Date End Date Jing Nair MD [address] [place], [place] PCP - General Internal Medicine 12/18/21 documented as of this encounter
--- OUTSIDE RECORDS SUMMARY | 2024-06-15 18:21 | XMS_ITS | Encounter Summary ---
Author Organization [facility] Address [address] [facility] [address] [place] [address] Phone Care Team Providers Care Carpet Sewer Name Role Phone Jing Nair Primary Care Provider [phone] Encounter Details Date Type Department Care Team (Late st Contact Info) Description 05/15/2024 Documentation Only [facility] [address] [place] [address] [place], [place] [address] [place] [address] Social History Tobacco Use [...] Visit [facility] [address] [place] [address] Dylan Strauss MD [address] [facility] [place] [address] documented as of this encounter Visit Diagnoses Not on filedocumented in this encounter Care Teams Carpet Sewer Relationship Specialty Start Date End Date Jing Nair PCP - General Internal Medicine 02/12/24 documented as of this encounter
--- OUTSIDE RECORDS SUMMARY | 2024-06-15 18:21 | XMS_ITS | Clinical Summary ---
Author Organization [facility] [place], Address [address] [place] [address] [place] [address] Phone Care Team Providers Care Podiatric Surgeon Name Role Phone Jing Nair Primary Care Provider Allergies Active Allergy Reactions Criticality Noted Date Comments Aspirin Nausea And Vomiting 04/24/2005 CAN TOLERATE NSAIDS Banana 11/24/2018 Sulfa Antibiotics Other (see comments) 04/24/19 06 Sulfamethoxazole-Trimet hopri 01/14/2019 Medications Tiotropium Holland Monohydrate 2.5 MCG/ACT aerosol solution Inhale 5 [...] Telephone [facility] [address] [place] [address] Rafaela Cabezas [place] 05/15/2024 Documentation Only [facility] [address] [place] [address] Rafaela Cabezas [place] 05/06/2024 4:00 PM EST Office Visit [facility] [address] [place] [address] Dylan Strauss MD Essential hypertension (Primary Dx) [...] Visit [facility] [place], [address] [place] [address] Dylan Strauss MD [address] [facility] [place] [id number] Health Maintenance Due Date Last Done Comments [...] 5, 12/28/2009, 01/17/2009, Additional history exists Insurance [facility] Care Teams Podiatric Surgeon Relationship Specialty Start Date End Date Jing Nair PCP - General Internal Medicine 02/12/24
[2024-06-16 13:33] LABS: Cyclic Citrullinated Peptide <16 UNITS
[2024-06-18 10:58] LABS: Anti Nuclear Antibody Screen NEGATIVE (NEGATIVE)
== END 2024-06-15 15:34 | disposition home or self-care (01) ==
LOC: HO.LAB 15:33
PROVIDERS: PCP Family Medicine; Visit Provider Hospitalist
DX: J45.50 Severe persistent asthma, uncomplicated (principal); J30.9 Allergic rhinitis, unspecified; L20.84 Intrinsic (allergic) eczema; N28.9 Disorder of kidney and ureter, unspecified; R60.0 Localized edema
CPT/HCPCS: 36415; 80048; 85025; 85652; 86038; 86200

== ENCOUNTER 2025-03-01 15:38 | Outpatient (AMB) | payer OTHER, SELFPAY ==
[2025-03-01 15:42] VITALS: BP 132/80; PULSE 96; O2SAT 96; BMI 37.6
--- NOTE | 2025-03-01 15:42 | A.OFFVIS_ITS ---
Vital Signs 03/01/25 15:42 Height 5 ft 4 in Weight 219 lb 5.759 oz BMI 37.6 BP 132/80 Blood Pressure Location Lt brachial Position Sitting Pulse 96 Pulse Source Pulse Oximeter Pulse Oximetry (%) 96 Oxygen Delivery Method Room Air Intake Visit Reasons: Asthma Rotary Drier Feeder Required: No Accompanied by: Self / Same As Patient Allergies aspirin Allergy (Severe, Verified 03/01/25 15:44) Rash and Hives Sulfa (Sulfonamide Antibiotics) Allergy (Severe, Verified 03/01/25 15:44) Rash and Hives HPI Comments Details: The patient is a 55 year-old woman with known severe persistent asthma. She continues to be a maximum respiratory therapy with Dulera and also Spiriva. She has been using her DuoNeb 3 to 4 times a day. I saw her back in November for the 1st time and at that time she has had multiple exacerbations requiring prednisone. Since I saw her back in November she has had 3 exacerbations requiring prednisone in 1 ER visit. They wanted to admit her because of her severe wheezing but the patient was reluctant to do so went home. She has been struggling now for the last few days. When she arrived to the office she had diffuse wheezing. Significant shortness of breath. She received 3 DuoNeb treatments in the office and also received 1 dose of IM Solu-Medrol 125 mg. Stil l have to all the therapy should continue have some wheezing. Apparently she was stable enough to go home. We did review her blood work at [facility]. She did have some eosinophilia noted on her CBC, but, it did clear based on the fact that she went on prednisone. Her IgE level was 100. There is RAST test positive for significant allergens. Positive for multi including alterneria. Also significant allergies to dust mites and environmental allergies including trees and significant for grasses and cats and dogs. Based on his significant wheezing will times a day that I have evaluated her she is not able to perform a spirometry. 09/26/2023 the patient is here for a pulmonary follow-up visit. She is doing very well on the Dupixent. The patient has respiratory symptoms have been decreased. She has not required any prednisone. Although she still concerned about his kidneys. She will be following up with Nephrology. She has not had any recent blood work at least in the last few months. The last blood work we have in the system was back from April and her EGFR was 57. I did reassure her that was not too bad but I am not sure what it is now. She was told by primary care doctor that she had ?stage III disease?. Therefore, based on the fact that we have that information and I am concerned about her kidneys will go ahead and start Dupixent because of the potential. I doubt the Dupixent has anything to do with it but there is 1 case report with IgA nephropathy. Therefore she will follow-up with Nephrology as well as possible. If she is able to rule out the possibility of IgA nephropathy and if her kidney function is better then she can consider going back on Dupixent. We will in the meantime will see how she does without it. She does have her Dulera and her allergy medicine. Another option is the if her symptoms worsen for asthma we can always consider a different biologic if she is requiring prednisone again. Will follow-up in early fall. If she has any worsening symptoms or any concerns she will call for an earlier assessment. 01/27/2024 the patient is here for a pulmonary follow-up visit. Since we last spoke the patient did require a course of prednisone because of worsening respiratory symptoms and now she is off the prednisone although she feels like her breathing is not well for her. She has been using her inhalers as prescribed. She does have severe persistent asthma. She did extremely well Dupixent where her symptoms improved significantly. although she did ended up with the IgA nephropathy. And then came up the question of 50 Dupixent has anything to do with that. There were some case reports that did suggest some connection. Therefore she has been off the Dupixent since then. Now that her symptoms are worsening the patient will benefit from going back on the biologic therapy. Although since there is any potential risk of kidney disease is best to avoid Dupixent at this time. We did talk about different alternatives including Fasenra in Xolair. Her eosinophils continue be elevated suggesting an L5 inhibitor will be effective. Will have to wait for the IgE to get a sense of other alternatives. In the meantime she is going to continue with the current respiratory therapy. She is going to undergo blood work today to see if she will benefit more from a I 0 5 inhibitor versus Xolair. 06/15/2024 the patient is here for a pulmonary follow-up visit. Apparently she developed flu-like symptoms about 3 weeks ago and she has finally recovering a little bit although she still having productive cough with yellow phlegm. Likely postviral bacterial infection. Will go ahead and treat that with doxycycline. In addition to that she has switched over to the Fasenra and she has found that that is very effective for her. It has been very helpful for her asthma. Although she has been noticing some pleuritic type of eczema some findings on her palms which is very rare for her and she feels is related to the medicine. Although is really helping her asthma so therefore will try to continue it for now. I will prescribe her Eucrisa that she can continue with her steroid ointment that she is using to see if this provides her relief and will hopefully see if her symptoms subside some when she started using the injections every 8 weeks. In addition to that she is having significant lower extremity edema. She has had issues with kidneys although apparently has been stable. Will go have her get blood work to make sure her kidneys are okay and if they are will give her a course of Lasix for 3 days to improve her volume status. She knows she needs to avoid salt because she is retaining it too much. Although she will continue with respiratory therapy. If she has any issues she will call otherwise will follow-up in 4-6 months. 03/01/2025 the patient is here for pulmonary follow-up visit. Overall the patient has been doing okay although she had been sick about a month ago. She did require prednisone and antibiotics. She was given a Z-Mao. She also had been sick prior to that with a GI bug. 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 As far as her medications she had been on Fasenra but she had developed a rash. Prior to that she had a reaction to Dupixent as well. She continues on the Dulera. Will going to go ahead and maximize her respiratory therapy by switching over to Trelegy. The patient continues have significant wheezing. Most likely has a component of postviral bacterial infection she still has a chest congestion and mucus production. Will start her on doxycycline she needs to make sure that she does not take a close to dairy because it can make her nauseous. We are going to try those medications 1st and see how she does. If she continues to be symptomatic will see about a different biologic. Test prior may be an option although the best option would be to angela id biologics altogether if possible. Will try to stabilize her asthma symptoms, but, if not able then biologics will be a good option. The patient also has issues with weight gain. She also has daytime drowsiness with an Alexandria score of 11/24. She does have snoring reported documented by her spouse. The patient will undergo sleep study at this time. [facility] Medical History (Updated 03/01/25 @ 19:50 by Rodríguez Cabezas MD) KALEB (obstructive sleep apnea) Lower extremity edema Renal insufficiency Eczema Chronic allergic rhinitis Asthma Social History Patient Tobacco Use Status: Former Tobacco user Review of Systems Const Denies night sweats ENT Denies change in voice, Denies lip swelling, Denies mouth pain, Reports nasal congestion, Reports nasal discharge and Denies tongue swelling Card Denies chest pain Resp Reports chest congestion, Reports cough and Reports wheezing GI Denies abdominal pain Musc Denies no additional complaints Skin/Breast Denies rash Neuro Denies Neuro-related abnormal movements Psych Denies no additional complaints Eduardo/Lymph Denies easy bleeding and Denies lymphadenopathy Aller/Immun Denies lip swelling, Denies tongue swelling and Reports wheezing Physical Exam Vital Signs: Last Vital Signs Pulse 96 03/01/25 15:42 BP 132/80 03/01/25 15:42 Pulse Ox 96 03/01/25 15:42 Oxygen Delivery Method Room Air 03/01/25 15:42 BMI result Body Mass Index 37.6 Const General: alert Neck Neck: Yes normal visual inspection, Yes full ROM and Yes no lymphadenopathy Chest Chest palpation & inspection: normal inspection of the chest Resp Effort & Inspection: normal respiratory effort Auscultation: rhonchi, wheezes and diminished lung sounds Cardio Rate: regular rate Rhythm: regular rhythm Heart sounds: S1 normal heart sound present and S2 normal heart sound present GI Palpation (GI): Soft to palpation and nontender Auscultation: normal bowel sounds General: Yes no CVA tenderness Back/Spine/Pelvis Back: no CVA tenderness Skin Rashes: rashes noted Assessment & Plan Assessment & Plan (1) Asthma: Code(s): J45.909 - Unspecified asthma, uncomplicated Category: Medical Qualifiers: Asthma complication type: uncomplicated Asthma persistence: persistent Asthma severity: severe Qualified Code(s): J45.50 - Severe persistent asthma, uncomplicated (2) Chronic allergic rhinitis: Code(s): J30.9 - Allergic rhinitis, unspecified Category: Medical (3) Eczema: Code(s): L30.9 - Dermatitis, unspecified Category: Medical Qualifiers: Eczema type: intrinsic Qualified Code(s): L20.84 - Intrinsic (allergic) eczema (4) Renal insufficiency: Comment: better Code(s): N28.9 - Disorder of kidney and ureter, unspecified Category: Medical (5) KALEB (obstructive sleep apnea): Code(s): G47.33 - Obstructive sleep apnea (adult) (pediatric) Category: Medical Plan hold Dulera 2 puff BID start Trelegy AALIYAH as needed start Doxycycline Low sodium diet PSG F/U 3-4 months Orders: Orders RT home sleep study Today G47.33 - Obstructive sleep apnea (adult) (pediatric) Medications: New egxampbtmpl-vagxujzti-eggdkrgp 200-62.5-25 mcg (Trelegy Ellipta) 1 inh inh alation DAILY 60 ea 12RF 30 days doxycycline monohydrate 100 mg PO BID 28 tabs 0RF 14 days Discontinued mometasone-formoterol 100-5 mcg/actuation Discontinued Reason: Doctor's Order 2 puffs inhalation BID 30 days 13 grams 11RF Coding Level of Care Code Est Pt Level 4 (55736) Complex EM visit Add On G2211 Diagnoses Severe persistent asthma without complication J45.50 Asthma complication type: uncomplicated Asthma persistence: persistent Asthma severity: severe Chronic allergic rhinitis J30.9 Intrinsic eczema L20.84 Eczema type: intrinsic Renal insufficiency N28.9 KALEB (obstructive sleep apnea) G47.33 Time Spent (min) 17
--- OUTSIDE RECORDS SUMMARY | 2025-03-01 17:43 | XMS_ITS | Encounter Summary ---
Author Organization [facility] Address [address] [place] [address] Phone Care Team Providers Care Correctional Program Officer Name Role Phone Jing Nair MD Primary Care Pr ovider Encounter Details Date Type Department Care Team (Late st Contact Info) Description 01/23/2025 Procedure Pass [facility], Ct Scan - [address] [address] Social History Tobacco Use Types Packs/Day Years Used Date Smoking Tobacco: Never Smokeless Tobacco: Never Alcohol Use Standard Drinks/Week Comments Not Currently 0 (1 standard drink = 0.6 oz pur e alcohol) Education Answer Date Recorded Are you interested in more education? Not on carlos e 08/17/2022 Are you concerned about learning? Not on file 08/17/2022 No 08/17/2022 No 08/17/2022 Digital Access Answer Date Recorded No 09/18/2022 No 09/18/2022 Reliable internet access at home? Not on file 09/18/2022 Device with a working camera? Not on file Intimate Partner Violence Answer Date R ecorded Are you denied basic needs s uch as food, clothing, or medical care? No 01/23/2025 In the past 12 months have y ou been in a relationship with a person who hurts, threatens, or tries to control you? No 01/23/2025 Are you denied basic needs s uch as food, clothing, or medical care? No 01/23/2025 In the past 12 months have y ou been in a relationship with a person who hurts, threatens, or tries to control you? No 01/23/2025 Comments No Sex and Gender Information Value Date Recorded Sex Assigned at Female 07/31/2022 1:57 PM EDT Legal Sex Female 9:28 AM EST Gender Identity Female 07/31/2022 1:57 PM EDT Sexual Orientation Not on file documented as of this encounter Functional Status * Calculated C-SSRS Risk Score (Lifetime/Recent) Answer Date of Assessment Author No Risk Indicated 01/23/2025 10:21 AM EDT Ele Ribeiro RN * [place] Suicide Severity Rating Scale (Screener/Recent Self-Report) Question Answer Date of Assessment Author 1. Wish to be (Past 1 Month) No 025 10:21 AM EDT Delphine Ribeiro RN 2. Non-Specific Active Suici silver Thoughts (Past 1 Month) No 01/23/2025 10:21 AM EDT Delphine Ribeiro RN 6. Suicidal Behavior (Lifetime) No 10:21 AM EDT Delphine Ribeiro RN documented as of this encounter Plan of Treatment Not on file documented as of this encounter Visit Diagnoses Not on filedocumented in this encounter Care Teams Correctional Program Officer Relationship Specialty Start Date End Date Jing Nair MD [address] [place] [address] PCP - General Family Medicine 09/05/23 documented as of this encounter Additional Source Comments The information contained in this document represents components of the legal health record. It is not the complete legal health record.[facility]
--- OUTSIDE RECORDS SUMMARY | 2025-03-01 17:43 | XMS_ITS | Encounter Summary ---
Author Organization [facility] Address [address] [place] [address] Phone Care Team Providers Care Construction Superintendent Name Role Phone Maty Conti MD Primary Care Provider Jing Nair MD Primary Care Pr ovider Encounter Details Date Type Department Care Team (Late st Contact Info) Description 02/19/2023 Procedure Pass [facility], Ct Scan - [address] [address] Social History Tobacco Use Types Packs/Day Years [...] with a working camera? Not on file Comments Unknown Sex and Gender Information Value Date Recorded Sex Assigned at Female 07/31/2022 1:57 PM EDT Legal Sex Female 9:28 AM EST Gender Identity Female 07/31/2022 1:57 PM EDT Sexual Orientation Not on file documented as of this encounter Functional Status * Calculated C-SSRS Risk Score (Lifetime/Recent) Answer Date of Assessment Author No Risk Indicated 02/19/2023 9:06 AM EDT Rosario Chauhan RN * [place] Suicide Severity Rating Scale (Screener/Recent Self-Report) Question Answer Date of Assessment Author 1. Wish to be (Past 1 Month) No 023 9:06 AM EDT Rosario Chauhan RN 2. Non-Specific Active Suici silver Thoughts (Past 1 Month) No 02/19/2023 9:06 AM EDT Rosario Chauhan RN 6. Suicidal Behavior (Lifetime) No 9:06 AM EDT Rosario Chauhan RN documented as of this encounter Plan of Treatment Not on file documented as of this encounter Visit Diagnoses Not on filedocumented in this encounter Additional Health Concerns Infection Onset Date Last Indicated Resolved Time CoV-Risk 07/09/2024 07/09/2024 07/20/2024 1:21 AM EDT documented as of this encounter Care Teams Construction Superintendent Relationship Specialty Start Date End Date Maty Conti MD PCP - General Family Medicine 07/31/22 09/04/23 Jing Nair MD [address] [place] [address] PCP - General Family Medicine 09/05/23 documented as of this encounter Additional Source Comments The information contained in this document represents components of the legal health record. It is not the complete legal health record.[facility]
--- OUTSIDE RECORDS SUMMARY | 2025-03-01 17:43 | XMS_ITS | Clinical Summary ---
Author Organization [facility] [address] [place] [address] [place] [phone] Phone Care Team Providers Care Hearing Therapy Teacher Name Role Phone Jing Nair MD Primary [...] wheezing or shortness of breath. 4 Active diclofenac (VOLTAREN) 1 % topical gel Apply 2 g topically 3 (three) times a day if needed. pain 3 Active loratadine (CLARITIN) 10 mg tablet Take 1 tablet (10 mg total) by mouth 1 (one) time each day. Active medroxyPROGESTER one (PROVERA) 10 mg tablet [...] day. Active losartan (COZAAR) 50 mg tablet TAKE 1 TABLET BY MOUTH DAILY. 90 tablet 1 5 Active Fasenra 30 mg/mL syringeIndicatio ns:Moderate persistent asthma without complication Inject 1 mL (30 mg total) under the skin once every eight weeks. 5 Active losartan (Cozaar) 25 mg tabletIndication s:Essential hypertension Take 1 tablet (25 mg total) by mouth 1 (one) time each day. Take with 50mg for total of 75mg daily 90 each 1 5 Active cholecalciferol (VITAMIN D-3) 50 mcg (2,000 unit) tabletIndication s:Vitamin D deficiency Take 1 tablet (2,000 Units total) by mouth 1 (one) time each day. 90 tablet 1 5 025 Active Active Problems Problem Noted Date Diagnosed Date Prediabetes 09/07/2024 Elevated LDL cholesterol level 09/02/2023 Assessment & Plan (09/02/2024 5:47 PM EDT): Due for labs which are ordered. 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 Continue follow-up with Dr. Strauss. Has appointment in October Orders: Comprehensive metabolic panel; Future Vitamin D deficiency 07/14/2018 Assessment & Plan (09/02/2024 5:47 PM EDT): Continue vitamin D 2000 units daily Orders: Vitamin D 25 hydroxy; Future cholecalciferol (VITAMIN D-3) 50 mcg (2,000 unit) tablet; Take 1 tablet (2,000 Units total) by mouth 1 (one) time each day. De Querdeep's tenosynovitis 06/25/2018 Overview (03/24/2024): Follows with orthopedics Anxiety and depression 06/16/2018 Assessment & Plan (09/02/2024 5:47 PM EDT): Well-controlled per patient. She declines medication management therapy at this time Essential hypertension 06/16/2018 Assessment & Plan (09/02/2024 5:47 PM EDT): See HPI. BP goal is less than 130/80 due to her CKD. Will increase losartan to 75 mg daily. She already has a 50 mg tablet and will take an extra 25 mg daily Monitor blood pressure at home Follow-up in 2 months Orders: losartan (Cozaar) 25 mg tablet; Take 1 tablet (25 mg total) by mouth 1 (one) time each day. Take with 50mg for total of 75mg daily Right ovarian cyst 10/08/2016 Overview (03/24/2024): Ultrasound October 04, 2016 Right ovary measures 2.8 x 1.5 x 1.3 cm and is diffusely echogenic in appearance of uncertain significance but possibly representing replacement by ovarian Doppler dermoid or ovarian fibroma. Class 2 severe obesity due t o excess calories with serious comorbidity and body mass index (BMI) of 36.0 to 36.9 in adult 02/11/2015 Assessment & Plan (09/02/2024 5:47 PM EDT): Lifestyle counseling provided Irritable bowel syndrome 08/12/2009 Eczema 06/25/2007 Assessment & Plan (09/02/2024 5:47 PM EDT): Continue triamcinolone as needed Moderate persistent asthma 06/18/2007 Overview (03/24/2024): Follows with pulmonary Assessment & Plan (09/02/2024 5:47 PM EDT): Well-controlled. Continue follow-up with Dr. Cabezas -has appointment in November Continue Dulera twice daily, albuterol as needed and Fasenra every 8 weeks Encounters Date Type Department Care Team Description 01/06/2025 Telephone Adult Medicine [address] [phone] Jing Nair MD from Last 3 Months Immunizations Immunization Administration Dates Next Due Influenza trivalent, 0.5mL, preservative free (Fluarix; FluLaval; Fluzone) ages 6mo and older (Afluria) 3 years and older 02/11/2015,12/28/2009,01/17/2009,02/03 PPD Test 02/11/2015, 2,08/15/2009,06/29,06/27/2000 Pneumococcal polysaccharide 23 valent (Pneumovax 23) 2yo and older 02/04/2008 Tdap Tetanus diptheria acell ular pertussis (Boostrix; Adacel) 7yo and older 02/22/2023,06/13/2011,09/27/2004 Surgical History Surgery Date Site/Laterality Comments SHOULDER SURGERY 2006 PROCEDURE: HISTORICAL SHOULDER SURGERY; COMMENT: RIGHT DJD FLEXIBLE SIGMOIDOSCOPY PROCEDURE: MS SIGMOIDOSCOPY FLX DX W/COLLJ SPEC BR/WA IF PFRMD; COMMENT: AGE 16 IBS TUBAL LIGATION PROCEDURE: HISTORICAL TUBAL LIGATION CERVICAL BIOPSY W/ LOOP ELECTRODE EXCISION 2013 N/A PROCEDURE: MS CONIZATION CERVIX W/WO D&C RPR ELTRD EXC BREAST BIOPSY 2018 Left PROCEDURE: BX BREAST; PERC NEEDLE CORE [...] fibroma. Abdominal pain DX:Abdominal pancho n Pancolitis DX:Pancolitis (H CC) Fatty liver DX:Fatty liver Family History Medical History Relation Name Comments Other cancer Mother fro m pancreatic ca at 50 Breast cancer Neg Hx Colon cancer Neg Hx Ovarian cancer Neg Hx Relation Name Status Comments Brother Alive ? DM Father (Age 54) AL, HTN Mother (Age 50) CANCER FRANCO CREAS, HTN Sister 1 Alive THYROID,HTN Sister 2 Alive HTN, KIDNEY STO SHAISTA Social History Tobacco Use Types Packs/Day Years Used Date Smoking Tobacco: Former Cigarettes 0.5 10 0 04/22/1985 - 04/22/1995 Smokeless Tobacco: Never Alcohol Use Standard Drinks/Week Comments Yes 0 (1 standard drink = 0.6 oz pur e alcohol) Housing Instability Answer Date Recorde d Are you worried that in the next 2 months you may not have stable housing? No 09/01/2024 Food Risk Answer Date Recorded Within the past 12 months we worried whether our food would run out before we got money to buy more. Sometimes true 025 Within the past 12 months th e food we bought just didn't last and we didn't have money to get more. Sometimes true 09/01/2024 Living Situation Answer Date Recorded What is your living situation? Unrecognized valu e 09/01/2024 Comments Unknown Sex and Gender Information Value Date Recorded Sex Assigned at Not on file Legal Sex Female 6:40 PM EST Gender Identity Not on file Sexual Orientation Not on file Obstetrics History Last Filed Vital Signs Vital Sign Reading Time Taken Comments Blood Pressure 133/83 09/02/2024 4:33 PM EDT Pulse 81 09/02/2024 4:33 PM EDT Temperature 36.8 C (98.3 F) 09/02/2024 4:33 PM EDT Respiratory Rate 18 09/02/2024 4:33 PM EDT Oxygen Saturation - - Inhaled Oxygen Concentration - - Weight 96.2 kg (212 lb) 09/02/2024 4:33 PM EDT Height 162.6 cm (5' 4 ) 09/02/2024 4:33 PM EDT Body Mass Index 36.39 09/02/2024 4:33 PM EDT Plan of Treatment Upcoming Encounters Date Type Department Care Team ([facility] st Contact Info) Description 04/09/2025 2:50 PM EST Appointment Radiology Department [address] [phone] Health Maintenance Due Date Last Done Comments Hepatitis B Vaccines (1 of 3 - 19+ 3-dose series) 1990 Zoster Vaccines (1 of 2) 1990 RSV Immunization Adult Patients (1 - Risk 50-74 years 1-dose series) 2021 HIV Screening 03/31/2022 Influenza Vaccine (#1) 2024 5, 12/28/2009, 01/17/2009, Additional history exists Social Influencers of Health Screening 09/01/2025 09/01/2024 Hypertension/CHF/CAD Annual BMP Blood Test 09/05/2025 09/05/2024, 08/30/2023, 08/30/2023 Breast Cancer Screening 01/09/2026 01/10/20 24, 01/10/2024, 08/16/2023, Additional history exists Cervical Cancer Screening: HPV 07/07/2027 07/06/2022 Cholesterol Screening (Lipid Panel) 09/05/2029 09/05/2024, 08/30/2023, 08/30/2023 Colorectal Cancer Screening: Colonoscopy 08/04/2031 08/03/2021 DTaP,Tdap,and Td Vaccines (4 - Td or Tdap) 02/22/2033 02/22/2023, 06/13/2011, 09/27/2004, Additional history exists Pneumococcal Vaccine: 50+ Years Discontinued 02/04/2008 COVID-19 Vaccine Discontinued 09/22/2021 Hepatitis C Screening Completed 12/19/2021 Depression Screening Completed 09/01/2024, 08/26/19 24 HIB Vaccines Aged Out No longer eligi ble based on patient's age to complete this topic HPV Vaccines Aged Out No longer eligi ble based on patient's age to complete this topic Hepatitis A Vaccines Aged Out No long er eligible based on patient's age to complete this topic IPV Vaccines Aged Out No longer eligi ble based on patient's age to complete this topic MMR Vaccines Aged Out No longer eligi ble based on patient's age to complete this topic Meningococcal ACWY Vaccine Aged Out N o longer eligible based on patient's age to complete this topic Meningococcal B Vaccine Aged Out No l onger eligible based on patient's age to complete this topic RSV Immunization Patients Under 20 months Aged Out No longer eligible based on patient's age to complete this topic Varicella Vaccines Aged Out No longer eligible based on patient's age to complete this topic Procedures Procedure Name Priority Date/Time Associated Diagnosis Comments COMPREHENSIVE METABOLIC PANEL Routine 09/05/2024 9:14 AM EDT Elevated LDL cholesterol level CKD (chronic kidney disease) stage 2, GFR 60-89 ml/min LIPID PANEL WITH REFLEX TO DIRECT LDL Routine 09/05/2024 9:14 AM EDT Elevated LDL cholesterol level DIAGNOSTIC MAMMOGRAPHY INCLUDING CAD BILATERAL Routine 01/10/2024 1:38 PM EDT Other abnormal and inconclusive findings on diagnostic imaging of breast DEPRESSION SCREENING Routine 08/26/2023 HPV Routine 07/06/2022 HEPATITIS C SCREENING Routine 12/19/2021 COLONOSCOPY Routine 08/03/2021 from Last 3 Months or Most Recently Relevant to Health Maintenance Results * (ABNORMAL) Lipid panel with reflex to direct LDL (09/05/2024 9:14 AM EDT) Cholesterol 192 0 - 200 mg/dL LAB CHEMISTRY METHOD 09/05/2024 6:58 PM EDT [facility] Triglycerides 63 0 - 150 mg/dL LAB CHEMISTRY METHOD 09/05/2024 6:58 PM EDT [facility] HDL 77 >=40 mg/dL LAB CHEMISTRY METHOD 09/05/2024 6:58 PM EDT [facility] LDL Calculated 102(H) 0 - 100 mg/dL LAB CHEMISTRY METHOD 09/05/2024 6:58 PM EDT [facility] VLDL Cholesterol Brian 12.6 mg/dL LAB CHEMISTRY METHOD 09/05/2024 6:58 PM T [facility] Non HDL Chol. (LDL+VLDL) 115 <145 mg/dL LAB CHEMISTRY METHOD 09/05/2024 6:58 PM EDT [facility] Chol/HDL Ratio 2.5 0.0 - 4.4 LAB CHEMISTRY METHOD 09/05/2024 6:58 PM T [facility] Blood Venous blood specimen / Unknown Venipuncture / Unknown 09/05/2024 9:14 AM EDT 09/05/2024 9:14 AM EDT Jing Nair MD LAB BLOOD ORDERA BLES Final Result [facility] [address] [place] [address], [place] [phone] * Comprehensive metabolic panel (09/05/2024 9:14 AM EDT) Sodium 141 133 - 145 mmol/L LAB CHEMISTRY METHOD 09/05/2024 6:58 PM [facility] Potassium 4.7 3.5 - 5.5 mmol/L LAB CHEMISTRY METHOD 09/05/2024 6:58 PM [facility] Chloride 108 96 - 110 mmol/L LAB CHEMISTRY METHOD 09/05/2024 6:58 PM [facility] CO2 29 21 - 32 mmol/L LAB CHEMISTRY METHOD 09/05/2024 6:58 PM [facility] Anion Gap 4 3 - 11 LAB CHEMISTRY METHOD 09/05/2024 6:58 PM [facility] Glucose 87 70 - 100 mg/dL LAB CHEMISTRY METHOD 09/05/2024 6:58 PM [facility] BUN 15 5 - 25 mg/dL LAB CHEMISTRY METHOD 09/05/2024 6:58 PM [facility] Creatinine 1.04 0.50 - 1.10 mg/dL LAB CHEMISTRY METHOD 09/05/2024 6:58 PM [facility] eGFR 64 >=60 mL/min/1. 73m2 LAB CHEMISTRY METHOD 09/05/2024 6:58 PM [facility] Comment:Calculation based on the Chronic Kidney Disease Epidemiology Collaboration (CKD-EPI) equation refit without adjustment for race. BUN/Creatinine Ratio 14.4 LAB CHEMISTRY METHOD 09/05/2024 6:58 PM [facility] Calcium 9.3 8.5 - 10.5 mg/dL LAB CHEMISTRY METHOD 09/05/2024 6:58 PM [facility] AST (SGOT) 21 10 - 42 unit/L LAB CHEMISTRY METHOD 09/05/2024 6:58 PM [facility] ALT (SGPT) 28 10 - 60 unit/L LAB CHEMISTRY METHOD 09/05/2024 6:58 PM [facility] Alkaline Phosphatase 71 42 - 121 unit/L LAB CHEMISTRY METHOD 09/05/2024 6:58 PM [facility] Total Protein 7.5 6.0 - 8.0 g/dL LAB CHEMISTRY METHOD 09/05/2024 6:58 PM [facility] Albumin 3.8 3.2 - 5.0 g/dL LAB CHEMISTRY METHOD 09/05/2024 6:58 PM [facility] Total Bilirubin 0.4 0.0 - 1.4 mg/dL LAB CHEMISTRY METHOD 09/05/2024 6:58 PM [facility] Blood Venous blood specimen / Unknown Venipuncture / Unknown 09/05/2024 9:14 AM EDT 09/05/2024 9:14 AM EDT Jing Nair MD LAB BLOOD ORDERA BLES Final Result [facility] [address] [place] [address], [place] [phone] * DIAGNOSTIC MAMMOGRAPHY INCLUDING CAD BILATERAL (01/10/2024 [...] left breast was performed, also using tomosynthesis. Mammograms were reviewed with computer aided detection and compared to previous. A retroareolar density being followed on the left is no longer identifiable. The breasts consists of a mixture of fatty and fibroglandular elements. There are no suspicious masses or microcalcifications. Impression: Negative bilateral mammography. BI-RADS Category 1, negative. Breast density: The breasts have scattered areas of fibroglandular density. 5 year breast cancer risk assessment 1.2 % Lifetime breast cancer risk assessment 8.3 % Breast cancer risk category Low (<15%) Location: [facility], [address] [place] [address], [phone], [phone] Procedure Note Gonzalo Mcginnis MD - 02/05/2024 [...] Breast cancer risk category Low (<15%) Location: [facility], [address] [place] [address], [id number], [phone] [facility] Amaris Ceja CNTalya IMG BI PROCEDURES Final Result * Depression Screening (08/26/2023) Pathologist [facility] Depression Screening abstracted Result [facility] Provider HEALTH MAINTENANCE Final Result * Cervical Cancer Screening: HPV (07/06/2022) Pathologist [facility] Cervical Cancer Screening: HPV negative, abstracted Result [facility] Historical Provider HEALTH MAINTENANCE Final Result * Hepatitis C Screening (12/19/2021) Pathologist [facility] Hepatitis C Screening abstracted Result [facility] Provider HEALTH MAINTENANCE Final Result * Colonoscopy (08/03/2021) [facility] Colonoscopy no interpretation , abstracted Anatomical Region Laterality Modality Other Result [facility] Provider HEALTH MAINTENANCE Final Result from Last 3 Months or Most Recently Relevant to Health Maintenance Insurance [facility] Care Teams Hearing Therapy Teacher Relationship Specialty Start Date End Date Jing Nair MD [address] [facility], [place] PCP - General Internal Medicine 12/18/21
--- OUTSIDE RECORDS SUMMARY | 2025-03-01 17:43 | XMS_ITS | Clinical Summary ---
Author Organization [facility] Address [address] [place] [address] Phone Care Team Providers Care Deburrer Strip Name Role Phone Jing Nair MD Primary Care Pr ovider Allergies Active Allergy Reactions Criticality Noted Date Comments Aspirin Nausea And Vomiting 04/24/2005 CAN TOLERATE NSAIDS CAN TOLERATE NSAIDS Sulfamethoxazole-Trim ethoprim 01/14/2019 Medications ondansetron (ZOFRAN-ODT) 4 MG disintegrating tablet Take 1 tablet (4 mg total) by mouth every 8 (eight) hours as needed. 20 tablet 02/20/20 Active Additional Information Patient not taking.Reported on 07/09/2024 morphine (MSIR) 15 MG tablet Take 1 tablet (15 mg total) by mouth every 6 (six) hours as needed for pain (specific location in comments). Partial fill ok 5 tablet 02/20/20 Active Additional Information Patient not taking.Reported on 07/09/2024 medroxyPROGESTERon e (PROVERA) 10 MG tablet Take 1 tab by mouth every 6 hours until the bleeding stops. Then take 1 tab daily. 40 tablet 09/05/19 Active Additional Information Patient not taking.Reported on 07/09/2024 morphine (MSIR) 15 MG tablet Take 0.5 tablets (7.5 mg total) by mouth every 4 (four) hours as needed for pain (specific location in comments). Partial fill ok 6 tablet 09/05/19 Active Additional Information Patient not taking.Reported on 07/09/2024 albuterol 90 mcg/actuation inhaler Inhale 2 puffs into the lungs every 4 (four) hours as needed for shortness of breath/dyspnea or wheezing. 11/27/19 24 Active FASENRA 30 mg/mL subcutaneous syringe injection Inject 30 mg under the skin once every 8 weeks. 07/08/19 25 Active Active Problems Problem Noted Date Diagnosed Date Asthma 01/14/2019 Encounters Date Type Department Care Team Description 01/23/2025 10:56 AM EDT - 01/23/2025 2:09 PM EDT Emergency [facility] [address] [place] [address] Alexx Pruett MD Discharge Disposition: Home or Self Care 01/23/2025 Procedure Pass [facility] Scan - [facility] [address] [place] [address] from Last 3 Months Social History Tobacco Use Types Packs/Day Years Used Date Smoking Tobacco: Never Smokeless Tobacco: Never Tobacco Cessation:Counseling Given: Not Answered Alcohol Use Standard Drinks/Week Comments Not Currently [...] PM EDT Sexual Orientation Not on file Last Filed Vital Signs Vital Sign Reading Time Taken Comments Blood Pressure 139/72 01/23/2025 2:08 PM EDT Pulse 71 01/23/2025 2:08 PM EDT Temperature 36.9 C (98.4 F) 01/23/2025 2:08 PM EDT Respiratory Rate 19 01/23/2025 2:08 PM EDT Oxygen Saturation 98% 01/23/2025 2:08 PM EDT Inhaled Oxygen Concentration - - Weight 97.5 kg (215 lb) 01/23/2025 10:21 AM EDT Height 162.6 cm (5' 4 ) 01/23/2025 10:21 AM EDT Body Mass Index 36.9 01/23/2025 10:21 AM EDT Plan of Treatment Health Maintenance Due Date Last Done Comments DEPRESSION SCREENING 1983 HEPATITIS C SCREENING 1989 HIV ONE-TIME SCREENING (18-65 YEARS) 1989 PAP SMEAR 01/28/1992 PNEUMOCOCCAL VACCINES (50+ years) (2 of 2 - PCV) 02/03/2009 02/04/2008 COLOGUARD 01/28/2016 COLONOSCOPY 01/28/2016 COLORECTAL CANCER SCREENING 01/28/2016 FIT TEST 01/28/2016 FOBT 01/28/2016 SIGMOIDOSCOPY 01/28/2016 VIRTUAL COLONOSCOPY 01/28/2016 RSV VACCINE (1 - Risk 50-74 years 1-dose series) 2021 ZOSTER VACCINES (1 of 2) 2021 INFLUENZA VACCINE (#1) 2024 5, 12/28/2009, 01/17/2009, Additional history exists COVID-19 VACCINE ( - 2024- season) 2024 MAMMOGRAM 01/09/2026 01/10/2024, 01/05/2023 SCREENING FOR DIABETES 01/24/2028 01/23/2025 LIPID PANEL 09/05/2029 09/05/2024, 08/30/2023 Adult Td,Tdap Booster 02/22/2033 02/22/2023 , 06/13/2011, 09/27/2004, Additional history exists SMOKING STATUS SCREENING (Once After 26 Yrs) Completed 01/23/2025 HEPATITIS A VACCINES Aged Out No long er eligible based on patient's age to complete this topic HIB VACCINES Aged Out No longer eligi ble based on patient's age to complete this topic MENINGOCOCCAL VACCINES (ACWY) Aged Out No longer eligible based on patient's age to complete this topic MENINGOCOCCAL VACCINES (B) Aged Out N o longer eligible based on patient's age to complete this topic Medical Devices Not on file Procedures Procedure Name Priority Date/Time Associated Diagnosis Comments URINALYSIS WITH REFLEX TO URINE CULTURE STAT 01/23/2025 1:[address] ABDOMEN/PELVIS WITH CONTRAST Routine 01/23/2025 11:53 AM EDT LIPASE STAT 01/23/2025 10:38 AM EDT LFTS (HEPATIC PANEL) STAT 01/23/2025 10:38 AM EDT HCG, SERUM QUALITATIVE STAT 01/23/2025 10:38 AM EDT BASIC METABOLIC PANEL (BMP) STAT 01/23/2025 10:38 AM EDT CBC AND DIFFERENTIAL STAT 01/23/2025 10:38 AM EDT from Last 3 Months Results * Urinalysis w/reflex Urine Culture (01/23/2025 1:32 PM EDT) COLOR Yellow Yellow [facility] CLARITY Clear [facility] GLUCOSE Negative Negative [facility] BILI Negative Negative [facility] KETONES Negative Negative [facility] SPECIFIC GRAVITY <1.005 1.005 - 1.030 [facility] BLOOD Negative Negative [facility] PH 7.5 5.0 - 8.0 [facility] Protein-UA Negative Negative [facility] NITRITE Negative Negative [facility] Leukocyte esterase, ur Negative Negative [facility] Urine (Urine) 01/23/2025 1:3 2 PM EDT 01/23/2025 1:39 PM EDT us Waldo Dias MD LAB URINE ORDERABLES Final Resu lt [facility] [address] [place] [address] * CT ABDOMEN/PELVIS WITH CONTRAST (01/23/2025 11:53 AM EDT) Anatomical Region Laterality Modality Abdomen, Pelvis Computed Tomogra phy 01/23/2025 12:3 3 PM EDT Impressions 01/23/2025 12:44 PM EDT No acute abnormality in the abdomen or pelvis. Narrative 01/23/2025 12:[address] ABDOMEN/PELVIS WITH CONTRAST Referring clinician's provided indication for this examination in Epic: * LLQ abdominal pain; Left lower quadrant and periumbilical tenderness, sudden onset pain around 8 AM this morning, also radiates to right flank, associated nausea and vomiting TECHNIQUE: Multidetector-row CT of the abdomen and pelvis was performed after administration of intravenous contrast using tailored dose modulation techniques. Images were reconstructed in the axial, coronal, and sagittal planes. COMPARISON: CT ABDOMEN/PELVIS WITH CONTRAST FINDINGS: Lower Chest: No consolidation or pleural effusions. Small hiatal hernia. Liver: No focal lesions. Biliary: Normal gallbladder. No biliary ductal dilatation. Spleen: No splenomegaly. Punctate splenic calcifications. Pancreas: No masses or ductal dilatation. Adrenal Glands: No nodules. Kidneys/Ureters: No solid masses, stones, or hydronephrosis. Bowel: Normal appendix. Normal small bowel and colon. Peritoneum/Retroperitoneum: No pneumoperitoneum or free fluid. Lymph Nodes: No lymphadenopathy. Pelvic Organs/Bladder: No mass. Vessels: No abdominal aortic aneurysm. Bones/Soft Tissues: Degenerative changes of the spine, most marked at L5-S1. Procedure Note Josiah Hollins MD - 01/23/2025 CT ABDOMEN/PELVIS WITH CONTRAST Referring clinician's provided indication for this examination in [facility]: *LLQ abdominal pain; Left lower quadrant and periumbilical tenderness,sudden onset pain around 8 AM this morning, also radiates to right flank,associated nausea and vomiting TECHNIQUE: Multidetector-row CT of the abdomen and pelvis was performedafter administration of intravenous contrast using tailored dosemodulation techniques. Images were reconstructed in the axial, coronal,and sagittal planes. COMPARISON: CT ABDOMEN/PELVIS WITH CONTRAST FINDINGS: Lower Chest: No consolidation or pleural effusions. Small hiatal hernia. Liver: No focal lesions. Biliary: Normal gallbladder. No biliary ductal dilatation. Spleen: No splenomegaly. Punctate splenic calcifications. Pancreas: No masses or ductal dilatation. Adrenal Glands: No nodules. Kidneys/Ureters: No solid masses, stones, or hydronephrosis. Bowel: Normal appendix. Normal small bowel and colon. Peritoneum/Retroperitoneum: No pneumoperitoneum or free fluid. Lymph Nodes: No lymphadenopathy. Pelvic Organs/Bladder: No mass. Vessels: No abdominal aortic aneurysm. Bones/Soft Tissues: Degenerative changes of the spine, most marked atL5-S1. IMPRESSION: No acute abnormality in the abdomen or pelvis. us Alexx Pruett MD IMG CT ABD/PELVIS Final Result * HCG, serum qualitative (01/23/2025 10:38 AM EDT) HCG, QUALITATIVE Negative Negative IU/L [facility] Blood 01/23/2025 10:3 8 AM EDT 01/23/2025 10:46 AM EDT Waldo Dias MD LAB BLOOD BKR ORDERABLES Final Result [address] [address] * LFTs (hepatic panel) (01/23/2025 10:38 AM EDT) ALKALINE PHOSPHATASE 73 39 - 117 U/L [facility] TOTAL BILIRUBIN 0.4 0.0 - 1.2 mg/dL [facility] DIRECT BILIRUBIN 0.1 0.0 - 0.2 mg/dL [facility] Bilirubin (Indirect) NOT CALCULATED 0 - 1.5 mg/dL [facility] AST 17 0 - 37 U/L [facility] ALT 17 0 - 40 U/L [facility] TOTAL PROTEIN 7.5 6.5 - 8.0 g/dL [facility] ALBUMIN 4.4 3.9 - 4.8 g/dL [facility] GLOBULIN 3.1 1 - 4.8 g/dL [facility] A/G Ratio 1.42 1.00 - 4.80 RATIO [facility] Blood 01/23/2025 10:3 8 AM EDT 01/23/2025 10:46 AM EDT us Waldo Dias MD LAB BLOOD BKR ORDERABLES Final Result [facility] [address] [place] [address] * (ABNORMAL) CBC and differential (01/23/2025 10:38 AM EDT) WBC 11.99(H) 4.00 - 11.00 K/uL [facility] RBC 4.70 4.00 - 5.20 M/uL [facility] HGB 12.8 12.0 - 16.0 g/dL [facility] HCT 41.0 36.0 - 46.0 % [facility] PLT 249 150 - 450 K/uL [facility] MCV 87.2 80.0 - 100.0 fL [facility] MCH 27.2 27.0 - 31.0 pg [facility] MCHC 31.2(L) 32.0 - 36.0 g/dL [facility] RDW 14.7(H) 11.5 - 14.5 % [facility] MPV 13.2(H) 8.4 - 12.0 fL [facility] NRBC 0.00 0.00 /100 WBCs [facility] ABSOLUTE NRBC 0.00 0.00 K/uL [facility] DIFF METHOD Auto [facility] NEUTS 70.2 48.0 - 76.0 % [facility] LYMPHS 19.4 18.0 - 41.0 % [facility] MONOS 7.6 4.0 - 11.0 % [facility] EOS 1.8 0.0 - 5.0 % [facility] BASOS 0.7 0.0 - 1.5 % [facility] Granulocytes, immature (%) 0.3 0.0 - 0.9 % [facility] ABSOLUTE NEUTS 8.43(H) 1.92 - 7.60 K/uL [facility] ABSOLUTE LYMPHS 2.33 0.72 - 4.10 K/uL [facility] ABSOLUTE MONOS 0.91 0.16 - 1.10 K/uL [facility] ABSOLUTE EOS 0.21 0.00 - 0.50 K/uL [facility] ABSOLUTE BASOS 0.08 0.00 - 0.15 K/uL [facility] Granulocytes, immature 0.03 0.00 - 0.09 K/uL [facility] Blood 01/23/2025 10:3 8 AM EDT 01/23/2025 10:46 AM EDT us Waldo Dias MD LAB BLOOD BKR ORDERABLES Final Result Performing Organization Address City/[facility]/ZIP Co de Phone Number [address] [address] * Lipase (01/23/2025 10:38 AM EDT) LIPASE 18 16 - 63 U/L [facility] Blood 01/23/2025 10:3 8 AM EDT 01/23/2025 10:46 AM EDT us Waldo Dias MD LAB BLOOD BKR ORDERABLES Final Result Performing Organization Address City/[facility]/ZIP Co de Phone Number [address] [address] * Basic metabolic panel (01/23/2025 10:38 AM EDT) SODIUM 137 133 - 146 mmol/L [facility] CHLORIDE 102 96 - 108 mmol/L [facility] POTASSIUM 3.7 3.3 - 5.1 mmol/L [facility] CO2 26 21 - 35 mmol/L [facility] BUN 14 6 - 19 mg/dL [facility] CREATININE 0.90 0.5 - 1.5 mg/dL [facility] GLUCOSE 89 70 - 99 mg/dL [facility] CALCIUM 9.0 8.4 - 10.3 mg/dL [facility] EGFR 76 >59 mL/min/1.7 3m2 [facility] Comment:Estimated glomerular filtration rate calculated using the CKD-EPI refit equation. ANION GAP 13 10 - 20 mmol/L [facility] Blood 01/23/2025 10:3 8 AM EDT 01/23/2025 10:46 AM EDT us Waldo Dias MD LAB BLOOD BKR ORDERABLES Final Result [facility] [address] [place] [address] from Last 3 Months Insurance [facility] [place] [address] [place] [address] [employer] P[place] EPO Member Subscriber Plan / Payer (Ef fective 2024-) Name:Terese Randall Relation to Subscriber:Self Name:Terese Randall Payer ID:[id number] (NAIC) Type:PPO Address: [address] [place] [address] PPO EPO Member Subscriber Plan / Payer (Ef fective 2024-) Name:Terese Randall Relation to Subscriber:Self Name:Terese Randall Payer ID:[id number] (IC) Type:PPO Address: [address] [place] [address] PPO EPO HMO [facility] PPO EPO Member Subscriber Plan / Payer (Ef fective 2024-) Name:Terese Randall Relation to Subscriber:Self Name:Terese Randall Payer ID:[id number] ([facility]) Type:PPO Address: [address] HMO Member Subscriber Plan / Payer (Ef fective 2024-Present) Name:Terese Randall Relation to Subscriber:Self Name:Terese Randall Payer ID:Not on file Type:HMO Address: [place] [id number] [facility] PPO EPO [facility] HMO Care Teams Deburrer Strip Relationship Specialty Start Date End Date Jing Nair MD [address] [place] [address] PCP - General Family Medicine 09/05/23 Additional Source Comments The information contained in this document represents components of the legal health record. It is not the complete legal health record.[facility]
== END 2025-03-01 16:12 | disposition home or self-care (01) ==
LOC: HO.HPS 15:39
PROVIDERS: PCP Family Medicine; Visit Provider Hospitalist
DX: J45.50 Severe persistent asthma, uncomplicated (principal); J30.9 Allergic rhinitis, unspecified; L20.84 Intrinsic (allergic) eczema; N28.9 Disorder of kidney and ureter, unspecified; G47.33 Obstructive sleep apnea (adult) (pediatric)
CPT/HCPCS: 99214; G2211